=== PATIENT | female | born 1940 | race Caucasian/White ===

== ENCOUNTER → 2017-07-29 12:24 | Outpatient (CLI) | payer MEDICARE, OTHER, SELFPAY ==
--- NOTE | 2017-07-29 | DI.MG.S_ITS ---
BILATERAL DIGITAL SCREENING MAMMOGRAM 3D/2D WITH CAD: 07/29/2017 CLINICAL: Routine screening. Family history of breast cancer. Comparison is made to exams dated: 07/19/2016 mammogram, 06/20/2015 mammogram, and 05/28/2014 mammogram - [facility]. The tissue of both breasts is predominantly fatty. Current study was also evaluated with a Computer Aided Detection (CAD) system. There is a 0.7 cm oval equal density focal asymmetry with a macrolobulated margin in the left breast at 1 o'clock anterior depth. This is increased in size compared to prior studies. No other significant masses, calcifications, or other findings are seen in either breast. IMPRESSION: INCOMPLETE: NEEDS ADDITIONAL IMAGING EVALUATION The 0.7 cm oval equal density focal asymmetry in the left breast is indeterminate. Mediolateral and spot compression views as well as additional views with possible ultrasound are recommended. This exam was interpreted at Station ID: [id number]. NOTE: For mammograms, a report in lay terms will be sent to the patient. Approximately 15% of breast malignancies will not be visualized mammographically. In the management of a palpable breast mass, a negative mammogram must not discourage biopsy of a clinically suspicious lesion. Electronically Signed By: Dequan Leonardo M.D. ddlori/:07/29/2017 15:17:16 letter sent: Additional Imaging Needed ACR BI-RADS Category 0: Incomplete [id number]
== END ==
PROVIDERS: Family Provider Internal Medicine; PCP Internal Medicine; Visit Provider Internal Medicine
DX: Z12.31 Encounter for screening mammogram for malignant neoplasm of breast (principal); Z80.3 Family history of malignant neoplasm of breast; R92.8 Other abnormal and inconclusive findings on diagnostic imaging of breast
CPT/HCPCS: 77063; 77067

== ENCOUNTER → 2017-08-09 10:22 | Outpatient (CLI) | payer MEDICARE, OTHER, SELFPAY ==
--- NOTE | 2017-08-09 | DI.MG.S_ITS ---
UNILATERAL LEFT DIGITAL DIAGNOSTIC MAMMOGRAM 3D/2D WITH ADDITIONAL VIEWS: 08/09/2017 CLINICAL: Additional evaluation requested from prior study. Comparison is made to exams dated: 07/29/2017 mammogram, 07/19/2016 mammogram, and 06/20/2015 mammogram - [facility]. The tissue of the left breast is predominantly fatty. There is an 8 mm oval equal density mass with a circumscribed margin in the left breast at 2 o'clock in the retroareolar region. No other significant masses or calcifications are seen in the breast. IMPRESSION: INCOMPLETE: NEEDS ADDITIONAL IMAGING EVALUATION The 8 mm oval equal density mass in the left breast is indeterminate. An ultrasound is recommended. This exam was interpreted at Station ID: [id number]. NOTE: For mammograms, a report in lay terms will be sent to the patient. Approximately 15% of breast malignancies will not be visualized mammographically. In the management of a palpable breast mass, a negative mammogram must not discourage biopsy of a clinically suspicious lesion. Electronically Signed By: Chava marques/deirdre:08/09/2017 12:34:50 ACR BI-RADS Category 0: Incomplete [id number]
--- NOTE | 2017-08-09 10:23 | DI.US.S_ITS ---
PROCEDURE: US BREAST LT LIMITED COMPARISON: [facility], US, CAROTID ARTERY DOPPLER BILAT, 01/20/2013, 11:08. INDICATIONS: Additional View Mammogram FINDINGS: IMPRESSION: Dictated by: Chava Vang M.D. on 08/09/2017 at 12:37 Approved by: Chava Vang M.D. on 08/09/2017 at 12:38
== END ==
PROVIDERS: Family Provider Internal Medicine; PCP Internal Medicine; Visit Provider Internal Medicine
DX: R92.8 Other abnormal and inconclusive findings on diagnostic imaging of breast (principal); N63.21 Unspecified lump in the left breast, upper outer quadrant
CPT/HCPCS: 76642; 77065; G0279

== ENCOUNTER → 2017-08-22 13:30 | Outpatient (CLI) | payer MEDICARE, OTHER, SELFPAY ==
--- NOTE | 2017-08-22 | PATH_ITS ---
[facility] Accession Number: [id number] . 01 Material submitted: . LEFT BREAST . 01 Clinical history: . MASS 2 O'CLOCK RETROAREOLAR . 02 Diagnosis: Retroareolar Mass at 2 o'clock Anterior Depth, Left Breast, Needle Core Biopsy: Benign fibroepithelial breast tissue with dense stroma in a background of abundant fibroadipose tissue. Negative for atypia or malignancy. Additional levels through the block are non-contributory. MRV/08/26/2017 . 02 Comment: There is no evidence of increased stromal cellularity, increased stromal mitoses, or stromal condensation around ductal epithelium. . 02 Electronically signed: . Isi Azevedo MD, Pathologist NPI- [id number] . 01 Gross description: . Received one formalin-filled container, labeled with the patient's name, designated left breast mass 2 o'clock retroareolar. The specimen is received with a plastic filter in the container, sample loose in container, are multiple yellow-rodríguez portions of soft tissue which aggregate to 1.5 x 0.5 x 0.3 cm. The specimen is filtered and entirely submitted in one cassette. Collection date: 08/22/2017. Collection time per container: 1500. Total fixation time: 12 hours, up to 24. ([id number]) /FRR . 02 Pathologist provided ICD-10: D24.2 . 02 CPT . 919661 Performed at: 01 [facility] [address] [id number] MD Dequan Kinsey MD Phone: [phone] Performed at: 02 [facility] [id number] [place] [id number] MD Bryon Starr MD Phone: [phone]
--- NOTE | 2017-08-22 13:33 | DI.US.S_ITS ---
ULTRASOUND GUIDED BIOPSY LEFT BREAST USING VACUUM DEVICE WITH MARKING DEVICE INSERTED: 08/22/2017 CLINICAL: Left breast mass. PATIENT CONSENT: Risks (minor bleeding, infection, vasovagal reaction and repeat procedure), benefits and alternatives were explained to the patient and written informed consent was obtained. Correlation is made to exams dated: 08/09/2017 ultrasound, 08/09/2017 mammogram, and 07/29/2017 mammogram - [facility]. An ultrasound guided biopsy using real-time ultrasound was performed for the mass located in the left breast at 2 o'clock in the retroareolar region. The skin was prepped in the usual manner. Local anesthetic was administered to the access site. A small incision was made in the breast. A 13 gauge biopsy needle was placed adjacent to the abnormality under ultrasound guidance. Once the needle was documented to be in the correct location, multiple specimens were obtained using the Mammotome biopsy system. A clip was inserted into the biopsy cavity. Post procedure imaging demonstrates the clip at the targeted area. The specimens were sent to the laboratory for pathological analysis. IMPRESSION: ULTRASOUND GUIDED BIOPSY BENIGN Ultrasound guided biopsy of the mass in the left breast at 2 o'clock in the retroareolar region was successful with no apparent post procedure complications. Pathology indicates benign breast tissue . A follow-up mammogram and an ultrasound in 6 months are recommended to demonstrate stability. This exam was interpreted at Station ID: [id number]. Chava marques,ddp/:08/28/2017 17:09:27
--- NOTE | 2017-08-22 13:33 | DI.MG.S_ITS ---
UNILATERAL LEFT DIGITAL DIAGNOSTIC MAMMOGRAM POST-NEEDLE BIOPSY: 08/22/2017 CLINICAL: Left breast mass. Post clip placement. Comparison is made to exams dated: 08/09/2017 mammogram, 07/29/2017 mammogram, and 07/19/2016 mammogram - [facility]. The tissue of the left breast is predominantly fatty. There is a marker clip in the appropriate position in the left breast at 2 o'clock anterior depth. This marker clip placement is at biopsy site. IMPRESSION: POST PROCEDURE MAMMOGRAM FOR MARKER PLACEMENT There was a successful marker clip placement in the left breast anterior depth. This exam was interpreted at Station ID: [id number]. NOTE: For mammograms, a report in lay terms will be sent to the patient. Approximately 15% of breast malignancies will not be visualized mammographically. In the management of a palpable breast mass, a negative mammogram must not discourage biopsy of a clinically suspicious lesion. Electronically Signed By: Chava marques/deirdre:08/22/2017 17:12:05 ACR BI-RADS Category Post-procedure mammogram for marker placement
== END ==
PROVIDERS: Family Provider Internal Medicine; PCP Internal Medicine; Visit Provider Internal Medicine
DX: N63.20 Unspecified lump in the left breast, unspecified quadrant (principal); R92.8 Other abnormal and inconclusive findings on diagnostic imaging of breast
CPT/HCPCS: 19083; 77065

== ENCOUNTER 2017-08-24 16:33 | Observation (INO) | payer MEDICARE, OTHER, SELFPAY ==
[2017-08-24] VITALS (9 sets, daily range): BP systolic 104–137; BP diastolic 51–84; PULSE 72–120; RESP 17–28; TEMP 35.9–36.5; O2SAT 88–99; BMI 30.6
--- NOTE | 2017-08-24 17:09 | ED.CHESTPAIN ---
HPI - Chest Pain General Chief Complaint: Chest Pain Stated Complaint: Chest Pain & SOB Time Seen by Provider: 08/24/17 16:45 Source: patient Mode of arrival: ambulatory Limitations: no limitations History of Present Illness HPI narrative: Patient is a 77-year-old female who presents with chest pain. She says that she has been having chest pain mostly with deep breathing for the last 2 weeks. However she was in her house today moving from her kitchen when she got sudden onset shortness of breath which doubled her over making her call 911. She is no longer having shortness of breath. She has no heart palpitations. MD complaint: chest pain Related Data Home Medications Medication Instructions Recorded Confirmed [FEVERFEW] 380 mg PO DAILY #0 06/17/17 08/24/17 coenzyme Q10 [Co Q-10] 100 mg PO QDAY #0 06/17/17 08/24/17 polyethylene glycol 3350 [Miralax] 17 gm PO QDAYP #0 06/17/17 08/24/17 vitamin B complex [B 1 tab PO QDAY #0 06/17/17 08/24/17 Complex-Vitamin B12] ascorbic acid (vitamin C) 1,000 mg PO QDAY #0 06/25/17 08/24/17 doxylamine succinate 25 mg PO HS PRN #0 06/25/17 08/24/17 melatonin 3 mg PO HS #0 06/25/17 08/24/17 acetaminophen 500 mg tablet 1,000 mg PO TID PRN 07/30/17 08/24/17 diclofenac 1 % topical gel 2 gram TOP QID PRN 07/30/17 08/24/17 methotrexate sodium 2.5 mg tablet 5 mg PO DIRECTED 07/30/17 08/24/17 sumatriptan 100 mg tablet 100 mg PO ONCE PRN 07/30/17 08/24/17 acetaminophen-codeine 1 tab PO QPM 08/24/17 08/24/17 [Tylenol-Codeine #3] lorazepam 1 mg PO HSP PRN 08/24/17 08/24/17 omeprazole 40 mg PO DAILY 08/25/17 08/25/17 Previous Rx's Medication Instructions Recorded prednisone 30 mg PO AMCC #60 tab 06/19/17 nortriptyline [Pamelor] 10 mg PO HS #90 cap 06/25/17 propranolol 120 mg PO QDAY #90 cap 06/25/17 simvastatin 40 mg PO HS #90 tab 06/25/17 spironolactone 50 mg PO QAM #90 tab 06/25/17 Allergies Allergy/AdvReac Type Severity Reaction Status Date / Time verapamil Allergy Mild UNKNOWN Verified 07/30/17 15:49 Review of Systems Review of Systems All systems reviewed & are unremarkable except as noted in HPI and below Constitutional Denies chills, Denies fever(s), Denies lethargy and Denies weakness Cardiovascular Reports as per HPI Respiratory Reports as per HPI Neurologic Denies weakness PFSH Medical History PMR (polymyalgia rheumatica) (Chronic) Hypertension (Chronic 05/15/11) Hyperlipidemia (Chronic) Gastroesophageal reflux disease (Chronic 06/14/14) 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) Herpes simplex virus (HSV) infection (Chronic) History of migraine headaches (Chronic) Surgical History History of esophagogastroduodenoscopy (EGD) (06/18/12) Status post bunionectomy Status post colonoscopy (01/07/07) Status post dilation and curettage Family History Brother Age: 81 Hyperlipidemia Father Heart disease Social History household members: spouse Smoking Status: Former smoker alcohol intake: current Exam Initial Vital Signs Initial Vital Signs: Vital Signs Temperature 96.7 F L 08/24/17 16:52 Pulse Rate 72 08/24/17 16:52 Respiratory Rate 17 08/24/17 16:52 Blood Pressure 107/64 08/24/17 16:52 Pulse Oximetry 99 08/24/17 16:52 GENERAL: Well-appearing, well-nourished and in no acute distress. HEENT: Head atraumatic,EOMI, pupils reactive CARDIOVASCULAR: Regular rate and rhythm without murmurs, rubs or gallops. Pain not reproducible with palpation RESPIRATORY: Breath sounds equal bilaterally, no wheezes rales or rhonchi. ABDOMEN: Soft, nontender. Normoactive bowel sounds all 4 quadrants. No guarding or rebound. EXTREMITIES: Normal range of motion, no clubbing or edema. Neurovascularly intact NEUROLOGICAL: Alert and oriented x4.Normal gait and speech. Cranial nerves II through XII grossly intact. SKIN: Warm, dry, no laceration, no petechiae, no rashes or lesions. Course Orders Ordered: ED Orders 08/25/17 05:21 Troponin I Routine Diclofenac Sodium (Voltaren 1% Gel) 1 applic TOP QID [facility] Enoxaparin Sodium (Lovenox) 40 mg SUBCUT DAILY [facility] Melatonin (Melatonin) 3 mg PO BEDTIME [facility] Last Admin: 08/25/17 00:33 Dose: Non-Formulary Medication (Acetaminophen [Tylenol Extra Strength]) 500 mg PO Q4H PRN PRN Reason: Pain, Moderate Nortriptyline HCl (Pamelor) 10 mg PO BEDTIME [facility] Last Admin: 08/25/17 00:29 Dose: 10 mg Pantoprazole Sodium (Protonix) 20 mg PO 0600 [facility] Last Admin: 08/25/17 06:32 Dose: 20 mg [facility]) [facility] Propranolol HCl (Inderal La) 120 mg PO DAILY [facility] Spironolactone (Aldactone) 50 mg PO DAILY [facility] Discontinued Medications Acetaminophen (Tylenol) 500 mg PO Q4HR PRN PRN Reason: As Needed for Fever/Mild Pain Albuterol/Ipratropium (Duoneb) 3 ml INH NOW ONE Stop: 08/24/17 17:10 Last Admin: 08/24/17 17:46 Dose: 3 ml Furosemide (Lasix) 40 mg IV NOW ONE Stop: 08/24/17 19:57 Last Admin: 08/24/17 20:00 Dose: 40 mg Sodium Chloride (Normal Saline 0.9%) 1,000 mls @ 1,000 mls/hr IV BOLUS ONE Stop: 08/24/17 18:36 Last Infusion: 08/24/17 19:16 Dose: 1,000 mls/hr Admin: 08/24/17 17:46 Dose: 1,000 mls/hr Pantoprazole Sodium (Protonix) 40 mg IV NOW ONE Stop: 08/24/17 17:12 Last Admin: 08/24/17 17:46 Dose: 40 mg Vital Signs - 8 hr 08/24/17 23:38 08/25/17 00:00 08/25/17 03:00 Temperature 97.7 F 99.3 F Pulse Rate 104 H 100 H Respiratory Rate 18 20 Blood Pressure 106/74 139/79 H Pulse Oximetry 93 98 100 08/25/17 06:36 08/25/17 06:51 Temperature Pulse Rate Respiratory Rate Blood Pressure Pulse Oximetry 86 L 89 L MDM - Chest Pain Lab Data Result diagrams: 08/24/17 16:15 08/24/17 16:15 Lab Results 08/24/17 08/24/17 08/24/17 Range/Units 16:15 16:15 16:15 WBC 5.9 (4.5-11.0) X10^3/uL RBC 3.67 L (4.0-5.2) X10^6/uL Hgb 11.7 L (12.0-16.0) g/dL Hct 34.6 L (36-46) % MCV 94.2 (80-100) fL MCH 31.9 (26-34) PG MCHC 33.8 (30-36) % RDW 19.3 H (11.6-14.8) % Plt Count 365 (150-400) X10^3/uL Neut % (Auto) 93.9 H (50-75) % Lymph % (Auto) 2.3 L (25-40) % Kenton % (Auto) 2.5 L (3-14) % Eos % (Auto) 1.1 L (2-4) % Baso % (Auto) 0.2 (0-2) % Neut # (Auto) 5600 (6842-2524) /uL PT 12.7 (10.1-12.7) SECONDS INR 1.2 (0.9-1.3) APTT 30 (26.4-36.2) SECONDS Sodium 134 L (137-145) mmol/L Potassium 4.8 (3.4-5.1) mmol/L Chloride 96 L (98-107) mmol/L Carbon Dioxide 25 (22-32) mmol/L BUN 29 H (7-17) mg/dL Creatinine 1.20 H (0.52-1.04) mg/dL Estimated GFR 43.7 L (>60) mL/min BUN/Creatinine Ratio 24.2 H (6-22) Glucose 126 H (80-110) mg/dL Lactate (0.7-2.1) mmol/L Calcium 9.4 (8.4-10.2) mg/dL Total Bilirubin 0.4 (0.2-1.3) mg/dL AST 33 (14-36) IU/L ALT 32 (9-52) IU/L Alkaline Phosphatase 65 (38-126) U/L Total Creatine Kinase < 20 L (30-135) U/L Troponin I < 0.012 (0.01-0.034) ng/mL B-Natriuretic Peptide 103.0 H (<100) Total Protein 7.2 (6.3-8.2) g/dL Albumin 3.8 (3.5-5.0) g/dL Globulin 3.4 (1.7-4.1) g/dL Albumin/Globulin Ratio 1.1 (1.0-2.8) Procalcitonin (<0.5) ng/mL 08/24/17 08/24/17 08/24/17 Range/Units 16:15 16:15 19:40 WBC (4.5-11.0) X10^3/uL RBC (4.0-5.2) X10^6/uL Hgb (12.0-16.0) g/dL Hct (36-46) % MCV (80-100) fL MCH (26-34) PG MCHC (30-36) % RDW (11.6-14.8) % Plt Count (150-400) X10^3/uL Neut % (Auto) (50-75) % Lymph % (Auto) (25-40) % Kenton % (Auto) (3-14) % Eos % (Auto) (2-4) % Baso % (Auto) (0-2) % Neut # (Auto) (1797-5034) /uL PT (10.1-12.7) SECONDS INR (0.9-1.3) APTT (26.4-36.2) SECONDS Sodium (137-145) mmol/L Potassium (3.4-5.1) mmol/L Chloride (98-107) mmol/L Carbon Dioxide (22-32) mmol/L BUN (7-17) mg/dL Creatinine (0.52-1.04) mg/dL Estimated GFR (>60) mL/min BUN/Creatinine Ratio (6-22) Glucose (80-110) mg/dL Lactate 1.9 (0.7-2.1) mmol/L Calcium (8.4-10.2) mg/dL Total Bilirubin (0.2-1.3) mg/dL AST (14-36) IU/L ALT (9-52) IU/L Alkaline Phosphatase (38-126) U/L Total Creatine Kinase (30-135) U/L Troponin I (0.01-0.034) ng/mL B-Natriuretic Peptide 89.2 (<100) Total Protein (6.3-8.2) g/dL Albumin (3.5-5.0) g/dL Globulin (1.7-4.1) g/dL Albumin/Globulin Ratio (1.0-2.8) Procalcitonin 0.20 (<0.5) ng/mL 08/24/17 08/25/17 Range/Units 21:53 05:21 WBC (4.5-11.0) X10^3/uL RBC (4.0-5.2) X10^6/uL Hgb (12.0-16.0) g/dL Hct (36-46) % MCV (80-100) fL MCH (26-34) PG MCHC (30-36) % RDW (11.6-14.8) % Plt Count (150-400) X10^3/uL Neut % (Auto) (50-75) % Lymph % (Auto) (25-40) % Kenton % (Auto) (3-14) % Eos % (Auto) (2-4) % Baso % (Auto) (0-2) % Neut # (Auto) (0791-6622) /uL PT (10.1-12.7) SECONDS INR (0.9-1.3) APTT (26.4-36.2) SECONDS Sodium (137-145) mmol/L Potassium (3.4-5.1) mmol/L Chloride (98-107) mmol/L Carbon Dioxide (22-32) mmol/L BUN (7-17) mg/dL Creatinine (0.52-1.04) mg/dL Estimated GFR (>60) mL/min BUN/Creatinine Ratio (6-22) Glucose (80-110) mg/dL Lactate (0.7-2.1) mmol/L Calcium (8.4-10.2) mg/dL Total Bilirubin (0.2-1.3) mg/dL AST (14-36) IU/L ALT (9-52) IU/L Alkaline Phosphatase (38-126) U/L Total Creatine Kinase (30-135) U/L Troponin I < 0.012 < 0.012 (0.01-0.034) ng/mL B-Natriuretic Peptide (<100) Total Protein (6.3-8.2) g/dL Albumin (3.5-5.0) g/dL Globulin (1.7-4.1) g/dL Albumin/Globulin Ratio (1.0-2.8) Procalcitonin (<0.5) ng/mL ECG Data Interpretation: Normal sinus rhythm T-wave inversion noted in lead [address] changes normal intervals similar to prior Discharge Plan Departure Patient Disposition: Admitted as Observation Clinical Impression: Chest pain, Hypoxia Discharge Date/Time: 08/24/17 22:48 Interventions: ED Discharge Assessment Last Done: 08/24/17 22:48 Admit Date/Time: 08/24/17 21:25 Admit Provider: Florentino Nevarez ED Cosign/Signout Sign Out Provider Sign Out Attestation: signed out to Dr. Silva awaiting ct pe, likely admission. hypotension and hypoxia.
--- NOTE | 2017-08-24 17:10 | DI.RAD.S_ITS ---
PROCEDURE: XR CHEST 2V INDICATIONS: short of breath and chest pain TECHNIQUE: 2 views of the chest were acquired. COMPARISON: , , CHEST 2 VIEW, 06/17/2017, 12:29. FINDINGS: Surgical changes and devices: None. Lungs and pleura: No pleural effusions or pneumothorax. Perihilar opacities are noted compatible with pulmonary edema. Mediastinum: Mediastinal contours are normal. Heart size is normal. Bones and chest wall: No suspicious bony abnormalities. Soft tissues appear unremarkable. IMPRESSION: Pulmonary edema. Dictated by: Sirisha Gunter MD, PhD on 08/24/2017 at 17:49 Approved by: Sirisha Gunter MD, PhD on 08/24/2017 at 17:51
--- NOTE | 2017-08-24 17:12 | ED_ITS ---
HPI - Chest Pain General Chief Complaint: Chest Pain Stated Complaint: Chest Pain & SOB Time Seen by Provider: 08/24/17 16:45 Source: patient Mode of arrival: ambulatory Limitations: no limitations History of Present Illness HPI narrative: Patient is a 77-year-old female who presents with chest pain. She says that she has been having chest pain mostly with deep breathing for the last 2 weeks. However she was in her house today moving from her kitchen when she got sudden onset shortness of breath which doubled her over making her call 911. She is no longer having shortness of breath. She has no heart palpitations. MD complaint: chest pain Related Data Home Medications Medication Instructions Recorded Confirmed [FEVERFEW] 380 mg PO DAILY #0 06/17/17 08/24/17 coenzyme Q10 [Co Q-10] 100 mg PO QDAY #0 06/17/17 08/24/17 polyethylene glycol 3350 [Miralax] 17 gm PO QDAYP #0 06/17/17 08/24/17 vitamin B complex [B 1 tab PO QDAY #0 06/17/17 08/24/17 Complex-Vitamin B12] ascorbic acid (vitamin C) 1,000 mg PO QDAY #0 06/25/17 08/24/17 doxylamine succinate 25 mg PO HS PRN #0 06/25/17 08/24/17 melatonin 3 mg PO HS #0 06/25/17 08/24/17 acetaminophen 500 mg tablet 1,000 mg PO TID PRN 07/30/17 08/24/17 diclofenac 1 % topical gel 2 gram TOP QID PRN 07/30/17 08/24/17 methotrexate sodium 2.5 mg tablet 5 mg PO DIRECTED 07/30/17 08/24/17 sumatriptan 100 mg tablet 100 mg PO ONCE PRN 07/30/17 08/24/17 acetaminophen-codeine 1 tab PO QPM 08/24/17 08/24/17 [Tylenol-Codeine #3] lorazepam 1 mg PO HSP PRN 08/24/17 08/24/17 omeprazole 40 mg PO DAILY 08/25/17 08/25/17 Previous Rx's Medication Instructions Recorded prednisone 30 mg PO AMCC #60 tab 06/19/17 nortriptyline [Pamelor] 10 mg PO HS #90 cap 06/25/17 propranolol 120 mg PO QDAY #90 cap 06/25/17 simvastatin 40 mg PO HS #90 tab 06/25/17 spironolactone 50 mg PO QAM #90 tab 06/25/17 Allergies Allergy/AdvReac Type Severity Reaction Status Date / Time verapamil Allergy Mild UNKNOWN Verified 07/30/17 15:49 Review of Systems Review of Systems All systems reviewed & are unremarkable except as noted in HPI and below Constitutional Denies chills, Denies fever(s), Denies lethargy and Denies weakness Cardiovascular Reports as per HPI Respiratory Reports as per HPI Neurologic Denies weakness PFSH Medical History PMR (polymyalgia rheumatica) (Chronic) Hypertension (Chronic 05/15/11) Hyperlipidemia (Chronic) Gastroesophageal reflux disease (Chronic 06/14/14) 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) Herpes simplex virus (HSV) infection (Chronic) History of migraine headaches (Chronic) Surgical History History of esophagogastroduodenoscopy (EGD) (06/18/12) Status post bunionectomy Status post colonoscopy (01/07/07) Status post dilation and curettage Family History Brother Age: 81 Hyperlipidemia Father Heart disease Social History household members: spouse Smoking Status: Former smoker alcohol intake: current Exam Initial Vital Signs Initial Vital Signs: Vital Signs Temperature 96.7 F L 08/24/17 16:52 Pulse Rate 72 08/24/17 16:52 Respiratory Rate 17 08/24/17 16:52 Blood Pressure 107/64 08/24/17 16:52 Pulse Oximetry 99 08/24/17 16:52 GENERAL: Well-appearing, well-nourished and in no acute distress. HEENT: Head atraumatic,EOMI, pupils reactive CARDIOVASCULAR: Regular rate and rhythm without murmurs, rubs or gallops. Pain not reproducible with palpation RESPIRATORY: Breath sounds equal bilaterally, no wheezes rales or rhonchi. ABDOMEN: Soft, nontender. Normoactive bowel sounds all 4 quadrants. No guarding or rebound. EXTREMITIES: Normal range of motion, no clubbing or edema. Neurovascularly intact NEUROLOGICAL: Alert and oriented x4.Normal gait and speech. Cranial nerves II through XII grossly intact. SKIN: Warm, dry, no laceration, no petechiae, no rashes or lesions. Course Orders Ordered: ED Orders 08/25/17 05:21 Troponin I Routine Diclofenac Sodium (Voltaren 1% Gel) 1 applic TOP QID [facility] Enoxaparin Sodium (Lovenox) 40 mg SUBCUT DAILY [facility] Melatonin (Melatonin) 3 mg PO BEDTIME [facility] Last Admin: 08/25/17 00:33 Dose: Non-Formulary Medication (Acetaminophen [Tylenol Extra Strength]) 500 mg PO Q4H PRN PRN Reason: Pain, Moderate Nortriptyline HCl (Pamelor) 10 mg PO BEDTIME [facility] Last Admin: 08/25/17 00:29 Dose: 10 mg Pantoprazole Sodium (Protonix) 20 mg PO 0600 [facility] Last Admin: 08/25/17 06:32 Dose: 20 mg Pred[facility]one ([facility]) [facility] Propranolol HCl (Inderal La) 120 mg PO DAILY [facility] Spironolactone (Aldactone) 50 mg PO DAILY [facility] Discontinued Medications Acetaminophen (Tylenol) 500 mg PO Q4HR PRN PRN Reason: As Needed for Fever/Mild Pain Albuterol/Ipratropium (Duoneb) 3 ml INH NOW ONE Stop: 08/24/17 17:10 Last Admin: 08/24/17 17:46 Dose: 3 ml Furosemide (Lasix) 40 mg IV NOW ONE Stop: 08/24/17 19:57 Last Admin: 08/24/17 20:00 Dose: 40 mg Sodium Chloride (Normal Saline 0.9%) 1,000 mls @ 1,000 mls/hr IV BOLUS ONE Stop: 08/24/17 18:36 Last Infusion: 08/24/17 19:16 Dose: 1,000 mls/hr Admin: 08/24/17 17:46 Dose: 1,000 mls/hr Pantoprazole Sodium (Protonix) 40 mg IV NOW ONE Stop: 08/24/17 17:12 Last Admin: 08/24/17 17:46 Dose: 40 mg Vital Signs - 8 hr 08/24/17 23:38 08/25/17 00:00 08/25/17 03:00 Temperature 97.7 F 99.3 F Pulse Rate 104 H 100 H Respiratory Rate 18 20 Blood Pressure 106/74 139/79 H Pulse Oximetry 93 98 100 08/25/17 06:36 08/25/17 06:51 Temperature Pulse Rate Respiratory Rate Blood Pressure Pulse Oximetry 86 L 89 L MDM - Chest Pain Lab Data Result diagrams: 08/24/17 16:15 08/24/17 16:15 Lab Results 08/24/17 08/24/17 08/24/17 Range/Units 16:15 16:15 16:15 WBC 5.9 (4.5-11.0) X10^3/uL RBC 3.67 L (4.0-5.2) X10^6/uL Hgb 11.7 L (12.0-16.0) g/dL Hct 34.6 L (36-46) % MCV 94.2 (80-100) fL MCH 31.9 (26-34) PG MCHC 33.8 (30-36) % RDW 19.3 H (11.6-14.8) % Plt Count 365 (150-400) X10^3/uL Neut % (Auto) 93.9 H (50-75) % Lymph % (Auto) 2.3 L (25-40) % [place] % (Auto) 2.5 L (3-14) % Eos % (Auto) 1.1 L (2-4) % Baso % (Auto) 0.2 (0-2) % Neut # (Auto) 5600 (4553-1782) /uL PT 12.7 (10.1-12.7) SECONDS INR 1.2 (0.9-1.3) APTT 30 (26.4-36.2) SECONDS Sodium 134 L (137-145) mmol/L Potassium 4.8 (3.4-5.1) mmol/L Chloride 96 L (98-107) mmol/L Carbon Dioxide 25 (22-32) mmol/L BUN 29 H (7-17) mg/dL Creatinine 1.20 H (0.52-1.04) mg/dL Estimated GFR 43.7 L (>60) mL/min BUN/Creatinine Ratio 24.2 H (6-22) Glucose 126 H (80-110) mg/dL Lactate (0.7-2.1) mmol/L Calcium 9.4 (8.4-10.2) mg/dL Total Bilirubin 0.4 (0.2-1.3) mg/dL AST 33 (14-36) IU/L ALT 32 (9-52) IU/L Alkaline Phosphatase 65 (38-126) U/L Total Creatine Kinase < 20 L (30-135) U/L Troponin I < 0.012 (0.01-0.034) ng/mL B-Natriuretic Peptide 103.0 H (<100) Total Protein 7.2 (6.3-8.2) g/dL Albumin 3.8 (3.5-5.0) g/dL Globulin 3.4 (1.7-4.1) g/dL Albumin/Globulin Ratio 1.1 (1.0-2.8) Procalcitonin (<0.5) ng/mL 08/24/17 08/24/17 08/24/17 Range/Units 16:15 16:15 19:40 WBC (4.5-11.0) X10^3/uL RBC (4.0-5.2) X10^6/uL Hgb (12.0-16.0) g/dL Hct (36-46) % MCV (80-100) fL MCH (26-34) PG MCHC (30-36) % RDW (11.6-14.8) % Plt Count (150-400) X10^3/uL Neut % (Auto) (50-75) % Lymph % (Auto) (25-40) % [place] % (Auto) (3-14) % Eos % (Auto) (2-4) % Baso % (Auto) (0-2) % Neut # (Auto) (6237-0174) /uL PT (10.1-12.7) SECONDS INR (0.9-1.3) APTT (26.4-36.2) SECONDS Sodium (137-145) mmol/L Potassium (3.4-5.1) mmol/L Chloride (98-107) mmol/L Carbon Dioxide (22-32) mmol/L BUN (7-17) mg/dL Creatinine (0.52-1.04) mg/dL Estimated GFR (>60) mL/min BUN/Creatinine Ratio (6-22) Glucose (80-110) mg/dL Lactate 1.9 (0.7-2.1) mmol/L Calcium (8.4-10.2) mg/dL Total Bilirubin (0.2-1.3) mg/dL AST (14-36) IU/L ALT (9-52) IU/L Alkaline Phosphatase (38-126) U/L Total Creatine Kinase (30-135) U/L Troponin I (0.01-0.034) ng/mL B-Natriuretic Peptide 89.2 (<100) Total Protein (6.3-8.2) g/dL Albumin (3.5-5.0) g/dL Globulin (1.7-4.1) g/dL Albumin/Globulin Ratio (1.0-2.8) Procalcitonin 0.20 (<0.5) ng/mL 08/24/17 08/25/17 Range/Units 21:53 05:21 WBC (4.5-11.0) X10^3/uL RBC (4.0-5.2) X10^6/uL Hgb (12.0-16.0) g/dL Hct (36-46) % MCV (80-100) fL MCH (26-34) PG MCHC (30-36) % RDW (11.6-14.8) % Plt Count (150-400) X10^3/uL Neut % (Auto) (50-75) % Lymph % (Auto) (25-40) % [place] % (Auto) (3-14) % Eos % (Auto) (2-4) % Baso % (Auto) (0-2) % Neut # (Auto) (9489-4434) /uL PT (10.1-12.7) SECONDS INR (0.9-1.3) APTT (26.4-36.2) SECONDS Sodium (137-145) mmol/L Potassium (3.4-5.1) mmol/L Chloride (98-107) mmol/L Carbon Dioxide (22-32) mmol/L BUN (7-17) mg/dL Creatinine (0.52-1.04) mg/dL Estimated GFR (>60) mL/min BUN/Creatinine Ratio (6-22) Glucose (80-110) mg/dL Lactate (0.7-2.1) mmol/L Calcium (8.4-10.2) mg/dL Total Bilirubin (0.2-1.3) mg/dL AST (14-36) IU/L ALT (9-52) IU/L Alkaline Phosphatase (38-126) U/L Total Creatine Kinase (30-135) U/L Troponin I < 0.012 < 0.012 (0.01-0.034) ng/mL B-Natriuretic Peptide (<100) Total Protein (6.3-8.2) g/dL Albumin (3.5-5.0) g/dL Globulin (1.7-4.1) g/dL Albumin/Globulin Ratio (1.0-2.8) Procalcitonin (<0.5) ng/mL ECG Data Interpretation: Normal sinus rhythm T-wave inversion noted in lead [address] changes normal intervals similar to prior Discharge Plan Departure Patient Disposition: Admitted as Observation Clinical Impression: Chest pain, Hypoxia Discharge Date/Time: 08/24/17 22:48 Interventions: ED Discharge Assessment Last Done: 08/24/17 22:48 Admit Date/Time: 08/24/17 21:25 Admit Provider: Florentino Nevarez ED Cosign/Signout Sign Out Provider Sign Out Attestation: signed out to Dr. Silva awaiting ct pe, likely admission. hypotension and hypoxia.
[2017-08-24 17:21] LABS: Add Manual Diff / Slide Review NO; Basophils Percent Auto 0.2 % (0-2); Eosinophils Percent Auto 1.1 % (2-4); Hematocrit 34.6 % (36-46); Hemoglobin 11.7 g/dL (12.0-16.0); INR 1.2 (0.9-1.3); Lymphocytes Percent Auto 2.3 % (25-40); Mean Corpuscular HGB Conc 33.8 % (30-36); Mean Corpuscular Hemoglobin 31.9 PG (26-34); Mean Corpuscular Volume 94.2 fL (80-100); Monocytes Percent Auto 2.5 % (3-14); Neutrophils Absolute Auto 5600 /uL (3000-5900); Neutrophils Percent Auto 93.9 % (50-75); Platelet Count 365 X10^3/uL (150-400); Prothrombin Time 12.7 SECONDS (10.1-12.7); Red Blood Cell Count 3.67 X10^6/uL (4.0-5.2); Red Cell Distribution Width 19.3 % (11.6-14.8); White Blood Cell Count 5.9 X10^3/uL (4.5-11.0)
[2017-08-24 17:23] LABS: PTT Partial Thromboplastin Tim 30 SECONDS (26.4-36.2)
[2017-08-24 17:26] LABS: Alanine Aminotransferase 32 IU/L (9-52); Albumin 3.8 g/dL (3.5-5.0); Albumin Globulin Ratio 1.1 (1.0-2.8); Alkaline Phosphatase 65 U/L (38-126); Aspartate Aminotransferase 33 IU/L (14-36); BUN Creatinine Ratio 24.2 (6-22); Bilirubin Total 0.4 mg/dL (0.2-1.3); Blood Urea Nitrogen 29 mg/dL (7-17); Calcium 9.4 mg/dL (8.4-10.2); Carbon Dioxide 25 mmol/L (22-32); Chloride 96 mmol/L (98-107); Creatine Kinase < 20 U/L (30-135); Estimated Glomerular Filt Rate 43.7 mL/min (>60); Globulin 3.4 g/dL (1.7-4.1); Glucose 126 mg/dL (80-110); HEMOLYSIS < 15 (0-50); Potassium 4.8 mmol/L (3.4-5.1); Sodium 134 mmol/L (137-145); Total Protein 7.2 g/dL (6.3-8.2)
[2017-08-24 17:37] LABS: Troponin I < 0.012 ng/mL (0.01-0.034)
[2017-08-24] MEDS: SODIUM CHLORIDE 0.9% 1,000 ML 1000 ML IV (17:46)
[2017-08-24] MEDS: PANTOPRAZOLE 40 MG VIAL IV (17:46)
[2017-08-24] MEDS: ALBUTEROL/IPRATROPIUM 3 ML AMPUL INH (17:46)
--- NOTE | 2017-08-24 17:50 | DI.CT.S_ITS ---
PROCEDURE: CT ANGIO CHEST PE PROTOCOL INDICATIONS: hypotensive, hypoxic chest pain TECHNIQUE: After the administration of intravenous contrast, 2 mm thick sections acquired from the pulmonary apices to the posterior costophrenic angles. 3-dimensional maximum intensity projection (MIP) coronal and sagittal reformats were then acquired through the thorax. For radiation dose reduction, the following was used: automated exposure control, adjustment of mA and/or kV according to patient size. COMPARISON: [facility], CT, PE STUDY (CTA CHEST), 06/17/2017, 15:03. FINDINGS: Image quality: Excellent. Pulmonary arteries: Pulmonary arteries are normal in size, and demonstrate no intraluminal filling defects to suggest central pulmonary embolism. Lungs and pleura: Bilateral perihilar opacities noted compatible with pulmonary edema versus atypical pneumonia.. No pleural effusions or pneumothorax. Central and peripheral airways are patent. Mediastinum: Heart size is normal, without pericardial effusion. No mediastinal or hilar adenopathy. Thoracic aorta is normal in caliber and enhancement. Esophagus is normal in caliber, without hiatal hernia. Bones and chest wall: No suspicious bony lesions. Ribs and thoracic spine appear intact throughout. Thyroid gland is within normal limits. No axillary or supraclavicular adenopathy. Abdomen: Visualized upper abdominal solid organs appear normal in the early arterial phase of enhancement. IMPRESSION: 1. No pulmonary embolus. 2. Bilateral perihilar airspace opacities compatible with pulmonary edema versus atypical pneumonia. Dictated by: Sirisha Gnuter MD, PhD on 08/24/2017 at 18:51 Approved by: Sirisha Gunter MD, PhD on 08/24/2017 at 18:56
--- NOTE | 2017-08-24 19:31 | PC.NURSE ---
Assumed care of pt in bed 12. Initial assessment completed. Pt reports mid chest pain with sob with light activities such as walking and leaning forward. Pt reports takes water pill which helps with lower leg edema but unable to recall the med name. pt was taken off the diuretic around then changed to lower/mild med/dose about a month ago. Noted mild crackles in lower lobes. Pt is not o2 dependent at home but has been provided during this ER visit. Pt assisted to bathroom with stand by assistance for ambulation trial. Pt desats to 93% in RA, after the ambulation, pt's lowest o2 sat at 76% then increased 88% in RA with RR in 28/min and reports SOB. a and p technician at bedside obtaining additional lab tests-BNP, cultures and procalcitonin.
[2017-08-24 19:51] LABS: B Type Natriuretic Peptide 89.2 (<100)
[2017-08-24] MEDS: FUROSEMIDE 40 MG/4 ML VIAL IV (20:00)
--- NOTE | 2017-08-24 20:06 | ED.CHESTPAIN ---
HPI - Chest Pain General Chief Complaint: Chest Pain Stated Complaint: Chest Pain & SOB Time Seen by Provider: 08/24/17 16:45 Source: patient Mode of arrival: ambulatory Limitations: no limitations History of Present Illness HPI narrative: Emergency Medicine Physician Handoff Note Verbal report from at 6:34:13 PM, 24/08/2017. Summary: 77 y/o female here with two weeks of intermittent chest pain, here following severe sharp stabbing pain. Vitals and completed studies were jointly reviewed, these are notable for: * Hypoxia and hypotension * WBC 5.9, HB 11.7, Na 134, K 4.8, troponin < 0.012 * CXR: pulmonary edema * EKG: SR 83 bpm, no LA segment depressions, QRS 76 ms, no ST segment elevations or depressions, no LBBB. Pending: CT PE Anticipated disposition: admission due to hypotension and hypoxemia. Evaluation: I independently reviewed the prior provider's chart, nursing and triage note(s), vitals - and when available - labs, EKGs, and imaging studies. CTA chest: no pulmonary embolus. Bilateral perihilar airspace opacity compatible pulmonary edema versus atypical pneumonia. Evaluation (repeat): 77-year-old female notes intermittent chest pain over last 2 weeks, worsened with sitting up her walking, relieved by lying flat resting, pain is mid sternum, poorly characterized, and nonradiating. Patient denies fevers and chills, patient variably endorses taking unknown water pill, medication reviews without evidence of a diuretic. Physical exam with faint crackles throughout the bilateral upper lung vital. BMP, procalcitonin, blood cultures ordered. DDx (remaining): CHF, pneumonia, costochondritis, pleurisy, unstable angina. Effectively excluded at this point the evaluation is dissection, PE, ACS, myocarditis, pericarditis, pleural effusion, pericardial effusion. Evaluation: imaging, exam, and vital signs are concerning for congestive heart failure. Patient had an ambulatory SaO2 of 76% on room air with good arterial plethysmography (patient does not use oxygen at home). Patient given lasix 40 mg and admitted for further care. Patient also had exacerbation of her chest pain will ambulating raising concern for unstable angina, this will require further evaluation on an inpatient basis. Follow-up of the patient's Procalcitonin, BNP, and blood cultures deferred to the admitting physician. Antibiotics were not given as is felt to be unlikely that the patient has pneumonia. Impression: CHF, chest pain (please reference below for remainder of encounter information) Critical Care Time Organ system(s): Cardiopulmonary Intervention: Assessment of the patient, interpretation of studies, communication related to patient care. Time: 30 minutes were spent directly related to patient care exclusive of separately billed procedures. Related Data Home Medications Medication Instructions Recorded Confirmed [FEVERFEW] PRN PRN #0 06/17/17 07/30/17 coenzyme Q10 [Co Q-10] 100 mg PO QDAY #0 06/17/17 07/30/17 polyethylene glycol 3350 [Miralax] 17 gm PO QDAYP PRN #0 06/17/17 07/30/17 vitamin B complex [B 1 tab PO QDAY #0 06/17/17 07/30/17 Complex-Vitamin B12] ascorbic acid (vitamin C) 1,000 mg PO QDAY #0 06/25/17 07/30/17 doxylamine succinate 25 mg PO HS PRN #0 06/25/17 07/30/17 melatonin 3 mg PO HS #0 06/25/17 07/30/17 acetaminophen 500 mg tablet 500 mg PO Q4-6H PRN 07/30/17 07/30/17 diclofenac 1 % topical gel 2 gram TOP QID 07/30/17 07/30/17 methotrexate sodium 2.5 mg tablet 5 mg PO QWEEK 07/30/17 07/30/17 sumatriptan 100 mg tablet 100 mg PO ONCE 07/30/17 07/30/17 Previous Rx's Medication Instructions Recorded ciprofloxacin HCl [Cipro] 500 mg PO BID #14 tab 06/19/17 ibuprofen 800 mg PO Q8HP PRN #1 tab 06/19/17 prednisone 30 mg PO AMCC #60 tab 06/19/17 Disabled Parking Permit ea #1 06/25/17 lorazepam 0.5 mg PO HSP PRN #30 tab 06/25/17 nortriptyline [Pamelor] 10 mg PO HS #90 cap 06/25/17 omeprazole 0 PO QDAY #90 cap 06/25/17 propranolol 120 mg PO QDAY #90 cap 06/25/17 simvastatin 40 mg PO HS #90 tab 06/25/17 spironolactone 50 mg PO QAM #90 tab 06/25/17 Allergies Allergy/AdvReac Type Severity Reaction Status Date / Time verapamil Allergy Mild UNKNOWN Verified 07/30/17 15:49 Review of Systems Constitutional Denies weakness Neurologic Denies weakness PFSH Medical History PMR (polymyalgia rheumatica) (Chronic) Hypertension (Chronic 05/15/11) Hyperlipidemia (Chronic) Gastroesophageal reflux disease (Chronic 06/14/14) 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) Herpes simplex virus (HSV) infection (Chronic) History of migraine headaches (Chronic) Surgical History History of esophagogastroduodenoscopy (EGD) (06/18/12) Status post bunionectomy Status post colonoscopy (01/07/07) Status post dilation and curettage Family History Brother Age: 81 Hyperlipidemia Father Heart disease Social History Smoking Status: Never smoker Exam Initial Vital Signs Initial Vital Signs: Vital Signs Temperature 96.7 F L 08/24/17 16:52 Pulse Rate 72 08/24/17 16:52 Respiratory Rate 17 08/24/17 16:52 Blood Pressure 107/64 08/24/17 16:52 Pulse Oximetry 99 08/24/17 16:52 Course Orders Ordered: ED Orders 08/24/17 16:15 B Type Natriuretic Peptide Stat B Type Natriuretic Peptide Stat Complete Blood Count AUTO DIFF Stat Comprehensive Metabolic Panel Stat Partial Thromboplastin Time Stat Procalcitonin Stat Prothrombin Time INR Stat Troponin with CK Cardiac Panel Stat 08/24/17 17:10 Consult to Respiratory Therapy Evaluate & Treat XR chest 2V Stat 08/24/17 17:50 CT angio chest PE protocol Stat 08/24/17 20:00 Blood Culture Stat Discontinued Medications Albuterol/Ipratropium (Duoneb) 3 ml INH NOW ONE Stop: 08/24/17 17:10 Last Admin: 08/24/17 17:46 Dose: 3 ml Furosemide (Lasix) 40 mg IV NOW ONE Stop: 08/24/17 19:57 Last Admin: 08/24/17 20:00 Dose: 40 mg Sodium Chloride (Normal Saline 0.9%) 1,000 mls @ 1,000 mls/hr IV BOLUS ONE Stop: 08/24/17 18:36 Last Infusion: 08/24/17 19:16 Dose: 1,000 mls/hr Admin: 08/24/17 17:46 Dose: 1,000 mls/hr Pantoprazole Sodium (Protonix) 40 mg IV NOW ONE Stop: 08/24/17 17:12 Last Admin: 08/24/17 17:46 Dose: 40 mg Vital Signs - 8 hr 08/24/17 16:52 08/24/17 17:51 08/24/17 19:13 Temperature 96.7 F L Pulse Rate 72 74 75 Respiratory Rate 17 18 21 Blood Pressure 107/64 Blood Pressure [Left Arm] 115/84 H Pulse Oximetry 99 92 97 08/24/17 19:39 Temperature Pulse Rate 120 H Respiratory Rate 28 H Blood Pressure Blood Pressure [Left Arm] Pulse Oximetry 88 L MDM - Chest Pain Lab Data Result diagrams: 08/24/17 16:15 08/24/17 16:15 Lab Results 08/24/17 08/24/17 08/24/17 Range/Units 16:15 16:15 16:15 WBC 5.9 (4.5-11.0) X10^3/uL RBC 3.67 L (4.0-5.2) X10^6/uL Hgb 11.7 L (12.0-16.0) g/dL Hct 34.6 L (36-46) % MCV 94.2 (80-100) fL MCH 31.9 (26-34) PG MCHC 33.8 (30-36) % RDW 19.3 H (11.6-14.8) % Plt Count 365 (150-400) X10^3/uL Neut % (Auto) 93.9 H (50-75) % Lymph % (Auto) 2.3 L (25-40) % [place] % (Auto) 2.5 L (3-14) % Eos % (Auto) 1.1 L (2-4) % Baso % (Auto) 0.2 (0-2) % Neut # (Auto) 5600 (5303-8494) /uL PT 12.7 (10.1-12.7) SECONDS INR 1.2 (0.9-1.3) APTT 30 (26.4-36.2) SECONDS Sodium 134 L (137-145) mmol/L Potassium 4.8 (3.4-5.1) mmol/L Chloride 96 L (98-107) mmol/L Carbon Dioxide 25 (22-32) mmol/L BUN 29 H (7-17) mg/dL Creatinine 1.20 H (0.52-1.04) mg/dL Estimated GFR 43.7 L (>60) mL/min BUN/Creatinine Ratio 24.2 H (6-22) Glucose 126 H (80-110) mg/dL Calcium 9.4 (8.4-10.2) mg/dL Total Bilirubin 0.4 (0.2-1.3) mg/dL AST 33 (14-36) IU/L ALT 32 (9-52) IU/L Alkaline Phosphatase 65 (38-126) U/L Total Creatine Kinase < 20 L (30-135) U/L Troponin I < 0.012 (0.01-0.034) ng/mL B-Natriuretic Peptide 103.0 H (<100) Total Protein 7.2 (6.3-8.2) g/dL Albumin 3.8 (3.5-5.0) g/dL Globulin 3.4 (1.7-4.1) g/dL Albumin/Globulin Ratio 1.1 (1.0-2.8) Procalcitonin (<0.5) ng/mL 08/24/17 08/24/17 Range/Units 16:15 16:15 WBC (4.5-11.0) X10^3/uL RBC (4.0-5.2) X10^6/uL Hgb (12.0-16.0) g/dL Hct (36-46) % MCV (80-100) fL MCH (26-34) PG MCHC (30-36) % RDW (11.6-14.8) % Plt Count (150-400) X10^3/uL Neut % (Auto) (50-75) % Lymph % (Auto) (25-40) % [place] % (Auto) (3-14) % Eos % (Auto) (2-4) % Baso % (Auto) (0-2) % Neut # (Auto) (9078-5083) /uL PT (10.1-12.7) SECONDS INR (0.9-1.3) APTT (26.4-36.2) SECONDS Sodium (137-145) mmol/L Potassium (3.4-5.1) mmol/L Chloride (98-107) mmol/L Carbon Dioxide (22-32) mmol/L BUN (7-17) mg/dL Creatinine (0.52-1.04) mg/dL Estimated GFR (>60) mL/min BUN/Creatinine Ratio (6-22) Glucose (80-110) mg/dL Calcium (8.4-10.2) mg/dL Total Bilirubin (0.2-1.3) mg/dL AST (14-36) IU/L ALT (9-52) IU/L Alkaline Phosphatase (38-126) U/L Total Creatine Kinase (30-135) U/L Troponin I (0.01-0.034) ng/mL B-Natriuretic Peptide 89.2 (<100) Total Protein (6.3-8.2) g/dL Albumin (3.5-5.0) g/dL Globulin (1.7-4.1) g/dL Albumin/Globulin Ratio (1.0-2.8) Procalcitonin 0.20 (<0.5) ng/mL Discharge Plan Departure Prescriptions: No Action polyethylene glycol 3350 [Miralax] 17 GM powder in packet 17 gm PO QDAYP PRNQty: 0 RF: 0 coenzyme Q10 [Co Q-10] 100 MG capsule 100 mg PO QDAY Qty: 0 RF: 0 vitamin B complex [B Complex-Vitamin B12] 1 EACH tablet 1 tab PO QDAY Qty: 0 RF: 0 [FEVERFEW] PRN PRNQty: 0 RF: 0 prednisone 20 MG tablet 30 mg PO AMCC Qty: 60 RF: 3 ciprofloxacin HCl [Cipro] 500 MG tablet 500 mg PO BID Qty: 14 RF: 0 ibuprofen 800 MG tablet 800 mg PO Q8HP PRNQty: 1 RF: 0 melatonin 3 MG tablet 3 mg PO HS Qty: 0 RF: 0 ascorbic acid (vitamin C) 500 MG tablet 1,000 mg PO QDAY Qty: 0 RF: 0 doxylamine succinate 25 MG tablet 25 mg PO HS PRNQty: 0 RF: 0 spironolactone 50 MG tablet 50 mg PO QAM Qty: 90 RF: 3 omeprazole 40 MG capsule,delayed release(DR/EC) PO QDAY Qty: 90 RF: 3 simvastatin 40 MG tablet 40 mg PO HS Qty: 90 RF: 3 nortriptyline [Pamelor] 10 MG capsule 10 mg PO HS Qty: 90 RF: 3 propranolol 120 MG capsule,extended release 24 hr 120 mg PO QDAY Qty: 90 RF: 3 lorazepam 1 MG tablet 0.5 mg PO HSP PRNQty: 30 RF: 0 Disabled Parking Permit Qty: 1 RF: 0 acetaminophen [Tylenol Extra Strength] 500 mg tablet 500 mg PO Q4-6H PRNRF: 0 methotrexate sodium 2.5 mg tablet 5 mg PO QWEEK RF: 0 sumatriptan succinate 100 mg tablet 100 mg PO ONCE RF: 0 diclofenac sodium 1 % gel 2 gram TOP QID RF: 0
--- NOTE | 2017-08-24 20:10 | PC.NURSE ---
Decreased o2 by NC to 1L to titrate o2 >94%. Pt states O2 by NC helping with symptoms.
[2017-08-24 20:59] LABS: Lactate (Lactic Acid) 1.9 mmol/L (0.7-2.1)
[2017-08-24 22:29] LABS: Troponin I < 0.012 ng/mL (0.01-0.034)
[2017-08-25] VITALS (15 sets, daily range): BP systolic 105–139; BP diastolic 55–79; PULSE 74–105; RESP 14–20; TEMP 36.1–37.7; O2SAT 86–100
[2017-08-25] MEDS: NORTRIPTYLINE 10 MG CAPSULE PO ×2 (00:29→21:17)
--- NOTE | 2017-08-25 01:35 | PC.NURSE ---
Addendum entered by Yahaira Ayala R.N. 08/25/17 01:39: 0029 Patient was medicated with Extra strength Tylenol 500mg for complaint of right knee pain. Medication not able to be scanned so medication was verified with [facility]. Original Note: 0000 Patient is alert and oriented. Breath sounds CTA but complains of SOB and 5/10 chest discomfort whenever she coughs. Cough is dry, intermittent and non productive. Oxygen at 1L/min per NC for comfort and sat is 98%. HRR and is on tele with rate in high 90's to low 100's. Denies nausea. BT hypoactive and states she has problems with constipation; is passing flatus. Denies dysuria, frequency, urgency or incontinence. Independent with bed mobility. Assisted to bathroom with SBA and appears to be steady on feet; denies any feeling of unsteadiness or weakness. Skin in good condition. Did have recent breast biopsy and has bruising and small scabbed area lateral to left breast nipple. Oriented to room and bed controls. Fall risk score is medium; bed alarm activated for the night.
[2017-08-25 05:55] LABS: Troponin I < 0.012 ng/mL (0.01-0.034)
[2017-08-25] MEDS: PANTOPRAZOLE 20 MG TABLET PO (06:32)
--- NOTE | 2017-08-25 09:25 | CM.DANOTE ---
DCP: assessment: Case received, EMR reviewed and met with pt. Introduced self and role. DCP template completed with info currently available. Pt is a 77 year old female who admitted last night to care of FMA: Dr. Nevarez Payer: Medicare and [facility]. PCP: Dr. Sam Nevarez had just been in to see pt and she confirmed that she is staying at least until tomorrow. Dr. Vargas will see me on Saturday. Dr. Nevarez's note is not available yet. At this point pt plans home when stable for same. Will follow as POC unfolds. She is currently on . Does not use this at home.
[2017-08-25] MEDS: predniSONE 10 MG TABLET 30 MG PO (09:48)
[2017-08-25] MEDS: PROPRANOLOL ER 60 MG CAPSULE 120 MG PO (09:48)
[2017-08-25] MEDS: ENOXAPARIN 40 MG/0.4 ML SYRINGE SUBCUT (09:48)
[2017-08-25] MEDS: SPIRONOLACTONE 50 MG TABLET PO (09:49)
--- NOTE | 2017-08-25 10:37 | PM.HP.1 ---
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) Herpes simplex virus (HSV) infection (Chronic) History of migraine headaches (Chronic) Surgical History History of esophagogastroduodenoscopy (EGD) (06/18/12) Status post bunionectomy Status post colonoscopy (01/07/07) Status post dilation and curettage Family & Social History Family History: Reviewed 08/25/17 by Florentino Nevarez MD Social History: household members spouse Prior Living Arrangements House Safety & Behavioral: Feels Safe in Current Yes Environment Been Physically Hurt or No Threatened By a Person Suicidal Ideation Description None Suicide Plan Description No Plan Tobacco & Substance use: Tobacco type cigarettes Smoking Status Former smoker alcohol intake current alcohol intake frequency a few times a week Substance Use Type does not use Meds Home Medications Medication Instructions Recorded Confirmed Type [FEVERFEW] 380 mg PO DAILY #0 06/17/17 08/24/17 History coenzyme Q10 [Co Q-10] 100 mg PO QDAY #0 06/17/17 08/24/17 History polyethylene glycol 3350 [Miralax] 17 gm PO QDAYP #0 06/17/17 08/24/17 History vitamin B complex [B 1 tab PO QDAY #0 06/17/17 08/24/17 History Complex-Vitamin B12] prednisone 30 mg PO AMCC #60 tab 06/19/17 08/24/17 Rx ascorbic acid (vitamin C) 1,000 mg PO QDAY #0 06/25/17 08/24/17 History doxylamine succinate 25 mg PO HS PRN #0 06/25/17 08/24/17 History melatonin 3 mg PO HS #0 06/25/17 08/24/17 History nortriptyline [Pamelor] 10 mg PO HS #90 cap 06/25/17 08/24/17 Rx propranolol 120 mg PO QDAY #90 cap 06/25/17 08/24/17 Rx simvastatin 40 mg PO HS #90 tab 06/25/17 08/24/17 Rx spironolactone 50 mg PO QAM #90 tab 06/25/17 08/24/17 Rx acetaminophen 500 mg tablet 1,000 mg PO TID PRN 07/30/17 08/24/17 History diclofenac 1 % topical gel 2 gram TOP QID PRN 07/30/17 08/24/17 History methotrexate sodium 2.5 mg tablet 5 mg PO DIRECTED 07/30/17 08/24/17 History sumatriptan 100 mg tablet 100 mg PO ONCE PRN 07/30/17 08/24/17 History acetaminophen-codeine 1 tab PO QPM 08/24/17 08/24/17 History [Tylenol-Codeine #3] lorazepam 1 mg PO HSP PRN 08/24/17 08/24/17 History omeprazole 40 mg PO DAILY 08/25/17 08/25/17 History Allergies Allergy/AdvReac Type Severity Reaction Status Date / Time verapamil Allergy Mild UNKNOWN Verified 07/30/17 15:49 Exam Vital Signs (past 8 hours): Vital Signs - 8 hr 08/25/17 03:00 08/25/17 06:36 08/25/17 06:51 Temperature 99.3 F Pulse Rate 100 H Respiratory Rate 20 Blood Pressure 139/79 H Pulse Oximetry 100 86 L 89 L 08/25/17 07:00 08/25/17 07:51 08/25/17 08:00 Temperature 99.8 F H Pulse Rate 98 H Respiratory Rate 14 Blood Pressure 111/57 L Pulse Oximetry 93 94 93 08/25/17 08:15 Temperature Pulse Rate Respiratory Rate Blood Pressure Pulse Oximetry 93 Pulse Oximetry 93 Oxygen Delivery Method Nasal Cannula Oxygen Flow Rate 3 Objective Labs Result Diagrams: 08/24/17 16:15 08/24/17 16:15 Labs: Laboratory Results - last 24 hr 08/24/17 08/24/17 08/24/17 16:15 16:15 16:15 WBC 5.9 RBC 3.67 L Hgb 11.7 L Hct 34.6 L MCV 94.2 MCH 31.9 MCHC 33.8 RDW 19.3 H Plt Count 365 Neut % (Auto) 93.9 H Lymph % (Auto) 2.3 L [place] % (Auto) 2.5 L Eos % (Auto) 1.1 L Baso % (Auto) 0.2 Neut # (Auto) 5600 PT 12.7 INR 1.2 APTT 30 Sodium 134 L Potassium 4.8 Chloride 96 L Carbon Dioxide 25 BUN 29 H Creatinine 1.20 H Estimated GFR 43.7 L BUN/Creatinine Ratio 24.2 H Glucose 126 H Lactate Calcium 9.4 Total Bilirubin 0.4 AST 33 ALT 32 Alkaline Phosphatase 65 Total Creatine Kinase < 20 L Troponin I < 0.012 B-Natriuretic Peptide 103.0 H Total Protein 7.2 Albumin 3.8 Globulin 3.4 Albumin/Globulin Ratio 1.1 Procalcitonin 08/24/17 08/24/17 08/24/17 16:15 16:15 19:40 WBC RBC Hgb Hct MCV MCH MCHC RDW Plt Count Neut % (Auto) Lymph % (Auto) [place] % (Auto) Eos % (Auto) Baso % (Auto) Neut # (Auto) PT INR APTT Sodium Potassium Chloride Carbon Dioxide BUN Creatinine Estimated GFR BUN/Creatinine Ratio Glucose Lactate 1.9 Calcium Total Bilirubin AST ALT Alkaline Phosphatase Total Creatine Kinase Troponin I B-Natriuretic Peptide 89.2 Total Protein Albumin Globulin Albumin/Globulin Ratio Procalcitonin 0.20 08/24/17 08/25/17 21:53 05:21 WBC RBC Hgb Hct MCV MCH MCHC RDW Plt Count Neut % (Auto) Lymph % (Auto) [place] % (Auto) Eos % (Auto) Baso % (Auto) Neut # (Auto) PT INR APTT Sodium Potassium Chloride Carbon Dioxide BUN Creatinine Estimated GFR BUN/Creatinine Ratio Glucose Lactate Calcium Total Bilirubin AST ALT Alkaline Phosphatase Total Creatine Kinase Troponin I < 0.012 < 0.012 B-Natriuretic Peptide Total Protein Albumin Globulin Albumin/Globulin Ratio Procalcitonin Quality VTE Deep Vein Thrombosis/Pulmonary Embolism Present on Admission: No
--- NOTE | 2017-08-25 10:41 | PM.HP.1 ---
History of Present Illness Date Patient Seen: 08/25/17 Time Patient Seen: 10:43 Chief complaint: Chest Pain & SOB Narrative: Patient is a [age]-year-old female patient of Dr. Vargas admitted last night through the emergency room. Patient was admitted with a presumptive diagnosis of congestive heart failure. The patient has been complaining of shortness of breath for somewhere between 2 and 3 weeks over the course of the 2-3 weeks that shortness of breath has increased over the last couple days as fairly intense. She had no fever no chills no mucus production no cough no edema no calf pain Additionally she developed some retrosternal chest pain is seem to be exertional this however is not present over the last several days primarily because she has not been exertional. She came to the emergency room because of the increasing shortness of breath. She has history of hypertension hyperlipidemia on medications for same. Additionally she has history of some sort of rheumatologic disorder of initially felt to be polymyalgia rheumatica and perhaps more recently pseudogout. She was hospitalized here for arthralgias in June. She has been on methotrexate and prednisone for the above diagnosis Recently apparently her methotrexate was increased from 8 tablets once a week to 10 tablets once a week and she relates the progression of her shortness of breath with the timing of the increased dose. Addition she has been tapering off the prednisone down to 10 mg daily She has no history of coronary artery disease no history of angina. Her has COPD and is on oxygen 24 hr a day. Her evaluation in the ER included lab studies CT and x-ray and patient was admitted with presumptive diagnosis of congestive heart failure versus is viral pneumonia. 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) Herpes simplex virus (HSV) infection (Chronic) History of migraine headaches (Chronic) Surgical History History of esophagogastroduodenoscopy (EGD) (06/18/12) Status post bunionectomy Status post colonoscopy (01/07/07) Status post dilation and curettage Family & Social History Family History: Reviewed 08/25/17 by Florentino Nevarez MD Social History: household members spouse Prior Living Arrangements House Safety & Behavioral: Feels Safe in Current Yes Environment Been Physically Hurt or No Threatened By a Person Suicidal Ideation Description None Suicide Plan Description No Plan Tobacco & Substance use: Tobacco type cigarettes Smoking Status Former smoker alcohol intake current alcohol intake frequency a few times a week Substance Use Type does not use Meds Home Medications Medication Instructions Recorded Confirmed Type [FEVERFEW] 380 mg PO DAILY #0 06/17/17 08/24/17 History coenzyme Q10 [Co Q-10] 100 mg PO QDAY #0 06/17/17 08/24/17 History polyethylene glycol 3350 [Miralax] 17 gm PO QDAYP #0 06/17/17 08/24/17 History vitamin B complex [B 1 tab PO QDAY #0 06/17/17 08/24/17 History Complex-Vitamin B12] prednisone 30 mg PO AMCC #60 tab 06/19/17 08/24/17 Rx ascorbic acid (vitamin C) 1,000 mg PO QDAY #0 06/25/17 08/24/17 History doxylamine succinate 25 mg PO HS PRN #0 06/25/17 08/24/17 History melatonin 3 mg PO HS #0 06/25/17 08/24/17 History nortriptyline [Pamelor] 10 mg PO HS #90 cap 06/25/17 08/24/17 Rx propranolol 120 mg PO QDAY #90 cap 06/25/17 08/24/17 Rx simvastatin 40 mg PO HS #90 tab 06/25/17 08/24/17 Rx spironolactone 50 mg PO QAM #90 tab 06/25/17 08/24/17 Rx acetaminophen 500 mg tablet 1,000 mg PO TID PRN 07/30/17 08/24/17 History diclofenac 1 % topical gel 2 gram TOP QID PRN 07/30/17 08/24/17 History methotrexate sodium 2.5 mg tablet 5 mg PO DIRECTED 07/30/17 08/24/17 History sumatriptan 100 mg tablet 100 mg PO ONCE PRN 07/30/17 08/24/17 History acetaminophen-codeine 1 tab PO QPM 08/24/17 08/24/17 History [Tylenol-Codeine #3] lorazepam 1 mg PO HSP PRN 08/24/17 08/24/17 History omeprazole 40 mg PO DAILY 08/25/17 08/25/17 History Allergies Allergy/AdvReac Type Severity Reaction Status Date / Time verapamil Allergy Mild UNKNOWN Verified 07/30/17 15:49 Review of Systems Review of Systems All systems reviewed & are unremarkable except as noted in HPI and below Exam Vital Signs (past 8 hours): Vital Signs - 8 hr 08/25/17 03:00 08/25/17 06:36 08/25/17 06:51 Temperature 99.3 F Pulse Rate 100 H Respiratory Rate 20 Blood Pressure 139/79 H Pulse Oximetry 100 86 L 89 L 08/25/17 07:00 08/25/17 07:51 08/25/17 08:00 Temperature 99.8 F H Pulse Rate 98 H Respiratory Rate 14 Blood Pressure 111/57 L Pulse Oximetry 93 94 93 08/25/17 08:15 Temperature Pulse Rate Respiratory Rate Blood Pressure Pulse Oximetry 93 Pulse Oximetry 93 Oxygen Delivery Method Nasal Cannula Oxygen Flow Rate 3 Narrative Exam Narrative: GENERAL: SKIN: No specific lesions or rash. HEENT: Sclera nonicteric, and EOMI. TMs and canals normal. Nasal mucosa normal and septum midline. Oropharnyx without lesions. NECK: Midline trachea, thyroid nontender and not enlarged. No lymphadenopathy. Carotids without bruits. BACK: No obvious deformity and nontender BREASTS: Not examined CHEST: Clear and symmetric breath sounds. CV: RRR no audible murmur. ABDOMEN: Soft nontender without viceromegaly or bruits.] EXTREMITIES: No cyanosis clubbing or edema. MUSCULOSKELETAL: No gross joint changes. NEURO: Cranial nerves grossly intact. Sensory motor normal. DTRs symmetric knees and ankles, 2+ bilaterally. She is examined in her hospital bed she is laying down and resting quietly appears in minimal shortness of breath. Her oxygen saturation on 4 L was in fact 96%. I cut back her oxygen to 2 L and then a matter of 2 min her oxygen saturation decreased to 88% and observe her brief which she is taking very shallow breaths. When she sat up and took deep breaths or O2 sats increased to 96%. Additionally her chest exam showed her lungs to be entirely clear She had no calf tenderness and she had no edema Objective Labs Result Diagrams: 08/24/17 16:15 08/24/17 16:15 Labs: Laboratory Results - last 24 hr 08/24/17 08/24/17 08/24/17 16:15 16:15 16:15 WBC 5.9 RBC 3.67 L Hgb 11.7 L Hct 34.6 L MCV 94.2 MCH 31.9 MCHC 33.8 RDW 19.3 H Plt Count 365 Neut % (Auto) 93.9 H Lymph % (Auto) 2.3 L [place] % (Auto) 2.5 L Eos % (Auto) 1.1 L Baso % (Auto) 0.2 Neut # (Auto) 5600 PT 12.7 INR 1.2 APTT 30 Sodium 134 L Potassium 4.8 Chloride 96 L Carbon Dioxide 25 BUN 29 H Creatinine 1.20 H Estimated GFR 43.7 L BUN/Creatinine Ratio 24.2 H Glucose 126 H Lactate Calcium 9.4 Total Bilirubin 0.4 AST 33 ALT 32 Alkaline Phosphatase 65 Total Creatine Kinase < 20 L Troponin I < 0.012 B-Natriuretic Peptide 103.0 H Total Protein 7.2 Albumin 3.8 Globulin 3.4 Albumin/Globulin Ratio 1.1 Procalcitonin 08/24/17 08/24/17 08/24/17 16:15 16:15 19:40 WBC RBC Hgb Hct MCV MCH MCHC RDW Plt Count Neut % (Auto) Lymph % (Auto) [place] % (Auto) Eos % (Auto) Baso % (Auto) Neut # (Auto) PT INR APTT Sodium Potassium Chloride Carbon Dioxide BUN Creatinine Estimated GFR BUN/Creatinine Ratio Glucose Lactate 1.9 Calcium Total Bilirubin AST ALT Alkaline Phosphatase Total Creatine Kinase Troponin I B-Natriuretic Peptide 89.2 Total Protein Albumin Globulin Albumin/Globulin Ratio Procalcitonin 0.20 08/24/17 08/25/17 21:53 05:21 WBC RBC Hgb Hct MCV MCH MCHC RDW Plt Count Neut % (Auto) Lymph % (Auto) [place] % (Auto) Eos % (Auto) Baso % (Auto) Neut # (Auto) PT INR APTT Sodium Potassium Chloride Carbon Dioxide BUN Creatinine Estimated GFR BUN/Creatinine Ratio Glucose Lactate Calcium Total Bilirubin AST ALT Alkaline Phosphatase Total Creatine Kinase Troponin I < 0.012 < 0.012 B-Natriuretic Peptide Total Protein Albumin Globulin Albumin/Globulin Ratio Procalcitonin Assessment & Plan Plan: Assessment/Plan Narrative: 1. Patient with 2 to three-week history of shortness of breath. Data from emergency room is reviewed. She had normal BNP. A she had chest CT and chest x-ray that were consistent with bilateral pulmonary infiltrates consistent with pulmonary edema as per radiologist. Additionally consistent with atypical pneumonia. 2. She does have significant oxygen needs. Para 3. She does tend to have an issue with hypoventilation. 4. She had normal troponins therefore did not have an acute myocardial infarction. Still could be having at angina as described by her exertional chest pain. 5. The patient will be treated for atypical pneumonia with azithromycin empirically. 6. Additionally this also may well be consistent with pulmonary fibrosis secondary to her methotrexate and so I will give her Solu-Medrol 60 mg IV every 6 hr empirically for this. Remainder of her medical problems appear to be stable. 7. Dr. Vargas to resume care tomorrow upon his return Quality VTE Deep Vein Thrombosis/Pulmonary Embolism Present on Admission: No
[2017-08-25] MEDS: AZITHROMYCIN 250 MG TABLET 500 MG PO (11:11)
[2017-08-25] MEDS: methylPREDNISolone 125 MG/2 ML VIAL 60 MG IV ×3 (11:11→21:17)
[2017-08-25 14:25] LABS: D Dimer 585 ng/mL (<230)
--- NOTE | 2017-08-25 14:43 | PC.NURSE ---
pt d-dimer 585, contacted Dr. Nevarez message service to report result
[2017-08-25] MEDS: MELATONIN 3 MG TABLET PO (21:17)
[2017-08-26] VITALS (9 sets, daily range): BP systolic 102–129; BP diastolic 63–71; PULSE 68–75; RESP 16–20; TEMP 36.4–37.5; O2SAT 90–96
--- NOTE | 2017-08-26 00:27 | PC.NURSE ---
Resting quietly, easily aroused A&O x 4. Denies any pain/discomfort at rest. Tele in place. O2 @ 3L nasal cannula, denies SOB at rest. Discussed fall risk and patient states understanding, states will call prior to getting OOB. Call light within reach and bed alarm on
--- NOTE | 2017-08-26 02:14 | PC.NURSE ---
Bed alarm sounded. Patient attempting to get OOB on own. Reinforced fall risk with patient. States understanding and agrees to use call light prior to getting OOB. Patient assisted back to bed past voiding and call light within reach and bed alarm on.
[2017-08-26] MEDS: methylPREDNISolone 125 MG/2 ML VIAL 60 MG IV ×4 (04:06→21:08)
[2017-08-26] MEDS: PANTOPRAZOLE 20 MG TABLET PO (05:47)
[2017-08-26] MEDS: ACETAMINOPHEN 325 MG TABLET 650 MG PO ×2 (06:41→19:12)
[2017-08-26] MEDS: DICLOFENAC 1% GEL 100 GM 1 APPLIC TOP (06:44)
--- NOTE | 2017-08-26 08:28 | P.PN_ITS ---
Subjective Date Patient Seen: 08/26/17 Time Patient Seen: 08:21 Interval history: Patient really has no complaints. Does not short of breath at all on oxygen. Still gets some mid chest discomfort after she has been coughing for a while. Still coughing a fair amount but it is nonproductive Joints are relatively stable at this time. Exam Vital Signs (past 8 hours): Vital Signs - 8 hr 3 08/26/17 04:14 08/26/17 07:16 Temperature 99.5 F Pulse Rate 75 Respiratory Rate 16 Blood Pressure 117/66 Pulse Oximetry 92 95 Pulse Oximetry 95 Oxygen Delivery Method Nasal Cannula Oxygen Flow Rate 4 Narrative Exam Narrative: HEENT-unremarkable, normocephalic atraumatic Neck-no lymphadenopathy no bruits Lungs-clear anteriorly and posteriorly no wheezes no crackles good breath sounds Heart-regular rate and rhythm no murmur rub or gallop normal S1-S2 Abdomen-positive bowel tones soft nontender nondistended no hepatosplenomegaly no masses palpable Neuro-normal to screening exam, gait not tested Extremities-no cyanosis clubbing or edema Objective Labs Result Diagrams: 08/24/17 16:15 08/24/17 16:15 Labs: Laboratory Results - last 24 hr 08/25/17 14:05 D-Dimer 585 H Assessment & Plan Plan: Assessment/Plan Narrative: 1. Probable interstitial pneumonitis-discussing patient's clinical course with her reviewing her lab results which includes a normal white blood cell count no evidence of fever normal procalcitonin lactate levels and reviewing her chest x- ray and chest CT which look like fairly classic interstitial infiltrates to me, I believe for diagnosis would either be an atypical pneumonia perhaps related to her me know suppression for her joint disease and/or a hypersensitivity type pneumonitis related to the methotrexate most likely. If indeed she has rheumatoid arthritis then she could also be developing element of pulmonary fibrosis related to the rheumatoid arthritis itself. Her rheumatological diagnosis is still up in the air, but includes PMR, rheumatoid arthritis, and pseudogout per most recent rheumatology note. Overall looking at her clinical picture I believe that a hypersensitivity type pneumonitis is the most likely diagnosis. Therefore I think she should remain off methotrexate indefinitely. She should continue on higher dose IV steroids switch to oral steroids upon discharge and will need oxygen therapy. Hopefully this will begin to resolve over time. However given her potential for an atypical pneumonia I think a course of treatment with something such as azithromycin which is already been started is entirely appropriate as well. I would also check repeat echocardiography to ensure there is no evidence of pulmonary edema although that seems extremely unlikely for there to be a cardiac source given her negative BNP as well as a very recent normal echocardiogram. There has been concern from clinical staff that this could represent a pulmonary embolism but she has a negative chest CT angiogram and there are infiltrates on chest x-ray and CT scanning that are entirely inconsistent with pulmonary embolism. Therefore I think even small PEs would not be an appropriate diagnosis. D-dimer was checked yesterday and was abnormal but can be abnormal in the setting of many different diseases. Therefore I do not think the clinical picture fits diagnosis of pulmonary embolism whatsoever. 2. Status post breast biopsy-patient with recent breast biopsy for abnormality I walked her feet. Pathology still pending. I suppose she could have some connection for potential breast cancer with her pulmonary changes as above but that seems extremely unlikely to me. Will await pathology for details regarding her status and I discussed that with her. 3. PMR/RA/pseudogout-should be much improved back on higher dose steroids. She will need to continue on steroids for pulmonary disease which could have the added benefit of suppressing her rheumatological disorder. Quality VTE Deep Vein Thrombosis/Pulmonary Embolism Present on Admission: No
[2017-08-26] MEDS: AZITHROMYCIN 250 MG TABLET PO (09:07)
[2017-08-26] MEDS: ENOXAPARIN 40 MG/0.4 ML SYRINGE SUBCUT (09:07)
[2017-08-26] MEDS: SPIRONOLACTONE 50 MG TABLET PO (09:08)
--- NOTE | 2017-08-26 10:22 | PC.NURSE ---
Day shift: A&Ox3. 2L NC 95%. Encouraged to deep breath. No pain. Has not been impulsive and is using call light proper. Agrees to not get OOB w/o help.
--- NOTE | 2017-08-26 19:25 | PC.NURSE ---
Keisha note: Awake, alert and oriented. Continue on O2 at 2L via NC with O2 sats 96%. SOB noted with mild exertion. No c/o chest pain at rest, reports mild discomfort to chest described as an ache with deep inspiration and cough only. C/O headache to temporal region described as a mild intermittent ache, 3/10, medicated with Tylenol 650 mg PO with adequate pain control. No dizziness or visual disturbance.
[2017-08-26] MEDS: MELATONIN 3 MG TABLET PO (20:44)
[2017-08-26] MEDS: NORTRIPTYLINE 10 MG CAPSULE PO (20:44)
[2017-08-27] VITALS (13 sets, daily range): BP systolic 106–132; BP diastolic 48–81; PULSE 63–93; RESP 16–20; TEMP 36.1–37.1; O2SAT 91–96
[2017-08-27] MEDS: methylPREDNISolone 125 MG/2 ML VIAL 60 MG IV ×4 (05:15→21:46)
[2017-08-27] MEDS: PANTOPRAZOLE 20 MG TABLET PO (05:15)
[2017-08-27] MEDS: ACETAMINOPHEN 325 MG TABLET 650 MG PO ×2 (07:44→20:24)
--- NOTE | 2017-08-27 08:31 | P.DS_ITS ---
History of Present Illness Date Patient Seen: 08/27/17 Time Patient Seen: 08:25 Chief complaint: Chest Pain & SOB Narrative: Patient is a [age]-year-old female patient of Dr. Vargas admitted last night through the emergency room. Patient was admitted with a presumptive diagnosis of congestive heart failure. The patient has been complaining of shortness of breath for somewhere between 2 and 3 weeks over the course of the 2-3 weeks that shortness of breath has increased over the last couple days as fairly intense. She had no fever no chills no mucus production no cough no edema no calf pain Additionally she developed some retrosternal chest pain is seem to be exertional this however is not present over the last several days primarily because she has not been exertional. She came to the emergency room because of the increasing shortness of breath. She has history of hypertension hyperlipidemia on medications for same. Additionally she has history of some sort of rheumatologic disorder of initially felt to be polymyalgia rheumatica and perhaps more recently pseudogout. She was hospitalized here for arthralgias in June. She has been on methotrexate and prednisone for the above diagnosis Recently apparently her methotrexate was increased from 8 tablets once a week to 10 tablets once a week and she relates the progression of her shortness of breath with the timing of the increased dose. Addition she has been tapering off the prednisone down to 10 mg daily She has no history of coronary artery disease no history of angina. Her has COPD and is on oxygen 24 hr a day. Her evaluation in the ER included lab studies CT and x-ray and patient was admitted with presumptive diagnosis of congestive heart failure versus is viral pneumonia. {from Dr. Nevarez's history and physical 08/25/2017} Discharge Providers Date of admission: 08/24/17 21:25 Primary care physician: Kevon Vargas MD Consults: Discharge provider: Kevon Vargas MD Discharge Date: 08/27/17 Summary Discharge Diagnosis: 1. 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 Hypoxia 3. Rheumatoid arthritis versus PMR Hospital Course: Patient was admitted to the hospital floor because of her presentation with atypical chest pain and hypoxia. Chest x-ray was entirely consistent with an interstitial process as was her CT scan of the chest. No evidence of pulmonary emboli but classic interstitial infiltrates. This was felt to be most likely due to either an atypical pneumonia due to her ongoing immunosuppression with methotrexate and prednisone for her autoimmune disease versus more likely a reaction to the methotrexate causing an interstitial pneumonitis or hypersensitivity type pneumonitis. Patient's methotrexate was discontinued she was placed on intravenous corticosteroids. She has ox will of course placed on oxygen replacement therapy. Patient's symptoms began to subside somewhat with the oxygen placement therapy and the institution of IV corticosteroids. Patient was felt to be stable for discharge by the morning of the 27 of August. She will need home oxygen and need to continue on a slightly higher dose of corticosteroids at home. She will have her methotrexate permanently discontinued and eventually will be referred back to Rheumatology for thoughts regarding other treatment options for her autoimmune disease I expect that her degree of inflammatory change in her long will likely although not for sure, improve over time probably 4-8 weeks and she should be able to be weaned off of oxygen. She will need to continue on relatively higher dose corticosteroids during this interval but hopefully that can be reduced to least from a pulmonary standpoint. Whether not her autoimmune disease causing her joint symptoms will need additional corticosteroids or additional treatment will be uncertain and decision making defer to Rheumatology. Patient was initially attempted to be discharged on the 27 of August. However this was canceled after concerns were raised by Respiratory therapy regarding patient's significant oxygen desaturation with activity. Patient remained in the hospital overnight. Upon careful review of all available data, and reviewing this with the patient and nursing staff in detail, it does seem clear to me that patient has interstitial lung disease as a source of her hypoxia which is most likely due to methotrexate but could also be an atypical pneumonia. She is being actively treated for the above and oxygen replacement therapy at home is entirely appropriate. She may will desaturate with activity but assuming she recovers at rest, there is no reason to keep her in the hospital. Concern was raised again by Respiratory therapy regarding possible pulmonary embolism with suggestion of performing a ventilation perfusion scan. Discussion was held with members of her care team pointing out the patient has clear classic interstitial infiltrates on imaging both CT and plain chest x-ray that are not consistent with pulmonary embolism. She had a CT angiography exam performed did not show evidence of large vessel or even small vessel pulmonary emboli. Therefore given that we have an alternate diagnosis for hypoxia (that being the interstitial changes seen) and no evidence of pulmonary embolism on her CT angiography I do not believe she has had a pulmonary embolism as a source of her symptoms. Ventilation perfusion imaging will clearly be abnormal given the changes seen on chest x-ray and CT and will therefore be of little value I believe in this setting to help rule out pulmonary embolism. Therefore that is not appropriate test to be performed if indeed I had a high index of suspicion for pulmonary embolism I believe the next test would be right heart catheterization with pulmonary artery angiography which I do not believe as above is required in this case. I discussed this all at length with the patient given that she had had input from many members of her care team here at the hospital and I think she fully understands what I believe to be going on with her lung disease and what to expect for the future. Greater than 40 min were spent arranging this patient's discharge the course of the day on the as well as continuing on into the with long discussions with patient patient's nursing staff respiratory therapy etc. Status at Discharge Cognitive/behavioral status at discharge: Normal/baseline Functional status at discharge: independent ambulation Overall status at discharge: patient is back to baseline Exam Vital Signs (past 8 hours): Vital Signs - 8 hr 3 08/27/17 01:00 08/27/17 01:05 08/27/17 03:49 Temperature 98.6 F 98.8 F Pulse Rate 73 63 Respiratory Rate 16 19 Blood Pressure 116/58 L 126/72 H Pulse Oximetry 94 96 96 Pulse Oximetry 96 Oxygen Delivery Method Nasal Cannula Oxygen Flow Rate 2 Narrative Exam Narrative: HEENT-unremarkable, normocephalic atraumatic Neck-no lymphadenopathy no bruits Lungs-clear anteriorly and posteriorly no wheezes no crackles good breath sounds Heart-regular rate and rhythm no murmur rub or gallop normal S1-S2 Abdomen-positive bowel tones soft nontender nondistended no hepatosplenomegaly no masses palpable Neuro-normal to screening exam, gait not tested Extremities-no cyanosis clubbing or edema Objective Labs Result Diagrams: 08/24/17 16:15 08/24/17 16:15 Discharge Plan Discharge Plan Patient Disposition: Home, Self-Care Discharge comment: needs home oxygen set up before discharge Provider Discharge Instructions Diet: Diet as Tolerated Activity: ad otoniel Oxygen: 3 l/min NC continuous (or as per RT) Discharge Data Primary Care Provider: Kevon Vargas Attending Provider: Kevon Vargas Admit Date/Time: 08/24/17 21:25 Quality VTE Deep Vein Thrombosis/Pulmonary Embolism Present on Admission: No
--- NOTE | 2017-08-27 09:11 | CM.DPC ---
DCP: continued: EMR reviewed, d/c to home order noted and with addition of home o2. Met with pt in followup to her d/c plan. Pt says she is comfortable with the use of home o2. She states Dr. Vargas anticiptates this will only be needed a couple of months and her has been on home o2 for years. Discussed ? HH. She states she does not think this would be helpful. She has no problem following up with her PCP Dr. Vargas in clinic. Pt's is picking her up. RT is process of getting pt set up for the home o2. P: home today as noted. Clinic followup.
[2017-08-27] MEDS: PROPRANOLOL ER 60 MG CAPSULE 120 MG PO (10:29)
[2017-08-27] MEDS: ENOXAPARIN 40 MG/0.4 ML SYRINGE SUBCUT (10:29)
[2017-08-27] MEDS: AZITHROMYCIN 250 MG TABLET PO (10:29)
[2017-08-27] MEDS: SPIRONOLACTONE 50 MG TABLET PO (10:30)
--- NOTE | 2017-08-27 15:55 | P.PN_ITS ---
Subjective Date Patient Seen: 08/27/17 Time Patient Seen: 07:52 Interval history: Patient basically feels about the same. Dyspneic with activity. Is anxious to go home at any point. Exam Vital Signs (past 8 hours): Vital Signs - 8 hr 3 08/27/17 11:00 Temperature 97.5 F L Pulse Rate 85 Respiratory Rate 18 Blood Pressure 106/63 Pulse Oximetry 96 Pulse Oximetry 96 Oxygen Delivery Method Nasal Cannula Oxygen Flow Rate 2 Narrative Exam Narrative: HEENT-unremarkable, normocephalic atraumatic Neck-no lymphadenopathy no bruits Lungs-clear anteriorly and posteriorly no wheezes no crackles good breath sounds Heart-regular rate and rhythm no murmur rub or gallop normal S1-S2 Abdomen-positive bowel tones soft nontender nondistended no hepatosplenomegaly no masses palpable Neuro-normal to screening exam, gait not tested Extremities-no cyanosis clubbing or edema Objective Labs Result Diagrams: 08/24/17 16:15 08/24/17 16:15 Assessment & Plan Plan: Assessment/Plan Narrative: 1. Interstitial lung disease/hypersensitivity pneumonitis-patient is still quite hypoxic with any activity. Replacement oxygen does not seem to make a huge difference as her oxygen saturation is at 85-86% on 4 L and similar on 15 L via nasal cannula. I really think she is probably okay to go home. It is going to take some time for her inflammatory process in her lungs to calm enough for this to improve. Respiratory therapy continues to be quite concerned this could represent pulmonary embolism but pulmonary embolism as noted previously does not produce infiltrates and her CT scan was normal. The time of seen any sort of infiltrative changes with there is actual pulmonary infarction which would be easily diagnosed with CT scan therefore I think any further evaluation for pulmonary embolism is not appropriate. She should continue on corticosteroids and oxygen therapy and remain off methotrexate which I think is the mcneil to her improving. If indeed she has atypical pneumonia that perhaps use at home ice will make some difference and she should continue on that. Work to try and send her home with replacement oxygen therapy at 3-4 L so that her oxygen saturation at rest is 88+ percent even if it does drop somewhat with activity. As Long as she recovers at rest I am okay with her going home. Quality VTE Deep Vein Thrombosis/Pulmonary Embolism Present on Admission: No
--- NOTE | 2017-08-27 16:06 | RT ---
While evaluating patient for home oxygen. Patient was short of breath throughout the walk. Her oxygen saturation on room air on the side of the bed was 88%, at this time patients oxygen was increased to 3LPM to have saturations above 95% before we started ambulating. Once ambulating patients saturation started to decline to 88% asked patient to stop her walked til her oxygen increased and patient continued to desaturate to 84% on 15LPM. Once test was completed patient continued to be short of breath increased patients oxygen to 5lpm on nasal cannula in patients room so her saturation would increase while in bed patient was stable when leaving room her saturation at 92%. Nir Walker the regional sales consultant for [employer] was also present and also explained to patients Nurse Rosemary Limon that [facility] could not cover home oxygen unless the diagnosis was a chronic issue, he also discussed with the patient probable out of pocket oxygen use if insurance did not cover oxygen. After Home oxygen test was done talked to Doctor Kevon Vargas that patient presents with symptoms of a pulmonary embolism and that a V/Q scan would be appropriate to rule out any probable pulmonary embolism, doctor Vargas dismissed the idea by stating that her CT showed no signs of a embolism and that her D-dimer was elevated for other reasons.
[2017-08-27] MEDS: NORTRIPTYLINE 10 MG CAPSULE PO (21:47)
[2017-08-27] MEDS: MELATONIN 3 MG TABLET PO (21:47)
--- NOTE | 2017-08-27 22:10 | PC.NURSE ---
Keisha shift: Bela continued to need supplemental O2 throughout shift, shortness of breath with minimal exertion exhibited. Using 3L NC to maintain 92-94%. Patient states to be able to pay out of pocket cost for home O2 usage. Plan is to go home tomorrow with home O2. Independent in room, vital signs otherwise stable. PO tylenol for headache and knee pain.
[2017-08-28 01:21] VITALS: O2SAT 84; O2SAT 93
[2017-08-28 04:00] VITALS: BP 119/58; PULSE 64; RESP 17; TEMP 36.8; O2SAT 94
[2017-08-28] MEDS: methylPREDNISolone 125 MG/2 ML VIAL 60 MG IV (05:29)
[2017-08-28] MEDS: SODIUM CHLORIDE 0.9% FLUSH 10 ML IV ×2 (05:29→09:38)
[2017-08-28] MEDS: PANTOPRAZOLE 20 MG TABLET PO (05:29)
[2017-08-28] MEDS: ACETAMINOPHEN 325 MG TABLET 650 MG PO (05:34)
--- NOTE | 2017-08-28 06:32 | PC.NURSE ---
Assumed care of pt from outgoing shift at 2300 6-19. pt awake. voided in BR. on 3L NC with humidification. PT denies pain, stated that Tylenol helped. Pt compliant with nursing assessments and denied further needs at this time. denied SOB/ pt did cough when asked to breathe deeply. Pt uses call light and waits for assistance. 0600- pt compliant with morning med pass. complained of joy and given tylenol per MAY. pt stated she didn't think she would fall back asleep, but checked on pt and she was asleep. breathing regularly and with no apparent distress. bed alarm on, side rails upx2 or pt safety. belongings and call light within reach. will continue to monitor pt for safety.
[2017-08-28 07:00] VITALS: O2SAT 93
--- NOTE | 2017-08-28 08:46 | P.PN_ITS ---
Subjective Date Patient Seen: 08/28/17 Time Patient Seen: 08:40 Interval history: Patient has no new complaints this morning. Actually says she feels a little better. Able to breathe deeper. Does cough a bit when she breathes really deep. Still has some substernal discomfort when really breathing deep. Was up and around with Respiratory therapy and was able to complete the loop around the nurse's station the large loop around the nurse's station that would be. She did desaturate into the 85% range per Respiratory therapy and was slow to rebound but did rebound back up into the 90+ range back on oxygen. Increasing her fraction of inspired oxygen all the way up to 15 liters/minute did not seem to change the level of desaturation that she experienced while active. This is entirely consistent with interstitial lung disease which she clearly has Exam Vital Signs (past 8 hours): Vital Signs - 8 hr 3 08/28/17 01:21 08/28/17 04:00 Temperature 98.2 F Pulse Rate 64 Respiratory Rate 17 Blood Pressure 119/58 L Pulse Oximetry 93 94 Pulse Oximetry 94 Oxygen Delivery Method Room Air Oxygen Flow Rate 3 Objective Labs Result Diagrams: 08/24/17 16:15 08/24/17 16:15 Assessment & Plan Plan: Assessment/Plan Narrative: Patient with interstitial lung disease based on plain chest x-ray findings as well as CT scan of the chest. Etiology of this interstitial changes not clear but most likely would be methotrexate caused reaction or hypersensitivity. This is not unusual but known side effect of this medication. She could also have an atypical pneumonia causing this changed specially given her relative immunosuppression with the methotrexate and prednisone together for her rheumatological disorder I do believe that with time whether this interstitial disease has been caused by the methotrexate or an atypical pneumonia issue will improve with time. Institution of increased doses of corticosteroids may well help speed up the process but that is not guaranteed. She will require supplemental oxygen to help maintain a relatively normal oxygen saturation while we wait for this interstitial disease process to out and resolve. In some cases it does not resolve but and the vast majority cases it does eventually resolved, in my experience. At this point I do believe that she is safe to go home assuming that her oxygen saturation at rest is at 90+ percent and that even if she desaturates into the low 80% range with activity (or perhaps even slightly lower) as long as she rebounds back to the more normal range with rest she should be able to return home. Given the nature of her disease higher fractions of inspired oxygen do not make a big difference which has been demonstrated by Respiratory therapy yesterday and she should be sufficient to go home on 3 or perhaps 4 L of supplemental oxygen via nasal cannula continuously. She will continue on oral corticosteroids and complete a course of oral antibiotics in an effort to treat. As far as her rheumatological disorder goes that should be much better on the higher dose prednisone which she will continue on because of her lung disease. She has an appointment coming up in early September with Rheumatology and hopefully by then her oxygen levels and/or lung disease will be improved although I am certain it will be back to normal but Rheumatology should hopefully be able to find alternative treatment to the methotrexate to help with her rheumatological disorder. I do believe her room logical disorder is poorly characterized am not clear whether that is rheumatoid arthritis polymyalgia rheumatica element of fibromyalgia or something different. Pseudogout has been entertained by Rheumatology but I do not think that really explains her presentation here in the hospital as it was really of polyarthritic process which would be extraordinarily unusual in the setting of pseudogout. She may have pseudogout in addition to everything else but I do not think that is her underlying rheumatological disorder. Note: Greater than 30 minutes was spent evaluating the patient on the floor, including examining the patient, discussing clinical course with clinical and nursing staff, reviewing clinical course in the computer, preparing documentation and writing orders for continued management of care, discussing status with family as appropriate, reviewing plans for the next 24 hours with both patient/family and nursing staff as appropriate. Time Spent With Patient Time with patient: Greater than 35 minutes Quality VTE Deep Vein Thrombosis/Pulmonary Embolism Present on Admission: No
[2017-08-28 09:00] VITALS: BP 114/81; PULSE 79; RESP 16; TEMP 36.4; O2SAT 93
[2017-08-28] MEDS: SPIRONOLACTONE 50 MG TABLET PO (09:37)
[2017-08-28] MEDS: PROPRANOLOL ER 60 MG CAPSULE 120 MG PO (09:37)
[2017-08-28] MEDS: ENOXAPARIN 40 MG/0.4 ML SYRINGE SUBCUT (09:37)
[2017-08-28] MEDS: predniSONE 10 MG TABLET 30 MG PO (09:37)
[2017-08-28] MEDS: AZITHROMYCIN 250 MG TABLET PO (09:37)
[2017-08-28 11:29] VITALS: O2SAT 96
--- NOTE | 2017-08-28 14:59 | PC.NURSE ---
pt d/c with O2. understands that if she is SOB or can't catch her breath she is to call MD or 911. Pt left on 3L O2 and Sigrid will provide remainder of O2 supplies for pt today at her home. PIV removed prior to d/c. Pt took all belongings with her including medications from pharmacy.
== END 2017-08-28 14:50 | disposition home or self-care (01) ==
LOC: ED 20:55 → AC 08-25 09:48
PROVIDERS: Emergency Medicine; Admitting Provider Family Medicine; Emergency Provider Emergency Medicine; Family Provider Internal Medicine; PCP Internal Medicine; Visit Provider Internal Medicine
DX: J18.9 Pneumonia, unspecified organism (principal); R06.02 Shortness of breath; M35.3 Polymyalgia rheumatica; E78.5 Hyperlipidemia, unspecified; K21.9 Gastro-esophageal reflux disease without esophagitis; Z87.891 Personal history of nicotine dependence; R09.02 Hypoxemia
CPT/HCPCS: 36415; 71046; 71275; 80053; 82550; 82553; 83605; 83880; 84145; 84484; 85025; 85379; 85610; 85730; 87040; 93005; 93041; 94618; 94640; 94760; 94762; 96361; 96374; 96375; 99217; 99219; 99222; 99226; 99233; 99238; 99284; 99285; G0378; C9113; J1650; J1940; J2930

== ENCOUNTER 2017-08-31 15:51 | Emergency (ER) | payer MEDICARE, OTHER, SELFPAY ==
[2017-08-24 23:10] VITALS: BMI 30.6
[2017-08-31] VITALS (7 sets, daily range): BP systolic 87–105; BP diastolic 54–68; PULSE 69–89; RESP 18–27; TEMP 37.1; O2SAT 78–98
--- NOTE | 2017-08-31 15:47 | DI.RAD.S_ITS ---
PROCEDURE: XR CHEST 1V INDICATIONS: Shortness of breath TECHNIQUE: One view of the chest was acquired. COMPARISON: [facility], CR, XR CHEST 2V, 08/24/2017, 17:05. FINDINGS: Surgical changes and devices: None. Lungs and pleura: Prominent mixed interstitial and alveolar opacities are seen within the perihilar regions. Mediastinum: Mediastinal contours appear normal. Heart size is normal. Bones and chest wall: No suspicious bony lesions. Overlying soft tissues appear unremarkable. IMPRESSION: Prominent perihilar lung markings are most suspicious for pulmonary edema. Atypical pneumonia may also have this appearance. These findings have progressed since 08/24/17. Dictated by: Pankaj Petit M.D. on 08/31/2017 at 16:20 Approved by: Pankaj Petit M.D. on 08/31/2017 at 16:20
--- NOTE | 2017-08-31 15:48 | ED_ITS ---
HPI - SOB/Dyspnea General Chief Complaint: Shortness of Breath/Dyspnea Stated Complaint: SOB for 1 week Time Seen by Provider: 08/31/17 15:59 Source: patient Mode of arrival: EMS Limitations: no limitations History of Present Illness 77-year-old female who spent several days here in the hospital within the past week for respiratory distress and had a negative CTA of the chest for pulmonary embolism and was sent home with a diagnosis of ?interstitial lung disease on oxygen. She was just discharged from the hospital 3 days ago. She states that since then she has been using her oxygen. She states that the 1st night the tube came on plug from the oxygen source and she became short of breath however this improved on the oxygen was readministered. She states that yesterday and today she has become more short of breath requiring her to increase her oxygen at home. She states that yesterday when she increased the oxygen her symptoms improved however today when she did this her symptoms did not improve. She becomes very short of breath upon any exertion. She does have a home oxygen meter and stated that today her oxygen saturations were in the mid 70s on 5 L by nasal cannula. She called her primary doctor who told her to come to the emergency department. Related Data Home Medications Medication Instructions Recorded Confirmed [FEVERFEW] 380 mg PO DAILY #0 06/17/17 08/24/17 coenzyme Q10 [Co Q-10] 100 mg PO QDAY #0 06/17/17 08/24/17 polyethylene glycol 3350 [Miralax] 17 gm PO QDAYP #0 06/17/17 08/24/17 vitamin B complex [B 1 tab PO QDAY #0 06/17/17 08/24/17 Complex-Vitamin B12] ascorbic acid (vitamin C) 1,000 mg PO QDAY #0 06/25/17 08/24/17 doxylamine succinate 25 mg PO HS PRN #0 06/25/17 08/24/17 melatonin 3 mg PO HS #0 06/25/17 08/24/17 acetaminophen 500 mg tablet 1,000 mg PO TID PRN 07/30/17 08/24/17 diclofenac 1 % topical gel 2 gram TOP QID PRN 07/30/17 08/24/17 sumatriptan 100 mg tablet 100 mg PO ONCE PRN 07/30/17 08/24/17 acetaminophen-codeine 1 tab PO QPM 08/24/17 08/24/17 [Tylenol-Codeine #3] lorazepam 1 mg PO HSP PRN 08/24/17 08/24/17 omeprazole 40 mg PO DAILY 08/25/17 08/25/17 Previous Rx's Medication Instructions Recorded nortriptyline [Pamelor] 10 mg PO HS #90 cap 06/25/17 propranolol 120 mg PO QDAY #90 cap 06/25/17 simvastatin 40 mg PO HS #90 tab 06/25/17 spironolactone 50 mg PO QAM #90 tab 06/25/17 azithromycin [Zithromax Z-Kishore] 250 mg PO DAILY #7 tab 08/27/17 prednisone 30 mg PO AMCC #60 tab 08/27/17 Allergies Allergy/AdvReac Type Severity Reaction Status Date / Time methotrexate Allergy Severe Difficulty Verified 08/28/17 02:27 Breathing verapamil Allergy Mild UNKNOWN Verified 07/30/17 15:49 Review of Systems Constitutional Denies fatigue, Denies fever(s) and Denies headache(s) ENT Ears, Nose, Mouth, and Throat: Denies headache(s) Cardiovascular Denies chest pain, Denies diaphoresis, Denies rapid heart rate, Denies palpitations, Reports dyspnea and Reports dyspnea on exertion Respiratory Denies cough, Denies pain on inspiration, Reports dyspnea, Reports dyspnea on exertion and Denies wheezing Gastrointestinal Gastrointestinal: Denies constipation, Denies diarrhea, Denies nausea and Denies vomiting Genitourinary Denies dysuria Musculoskeletal Denies abnormal gait, Denies myalgias and Denies arthralgias Integumentary/Breasts Denies lesions, Denies rash and Denies wounds Neurologic Denies abnormal gait, Denies behavioral changes, Denies confusion, Denies headache(s) and Denies focal weakness Psychiatric Denies behavioral changes and Denies confusion Endocrine Denies fatigue and Denies palpitations Hematologic/Lymphatic Denies easy bleeding Allergic/Immunologic Denies wheezing [facility] Medical History Interstitial lung disease (Acute) Pseudogout (Chronic) PMR (polymyalgia rheumatica) (Suspected) Hypertension (Chronic 05/15/11) Hyperlipidemia (Chronic) Gastroesophageal reflux disease (Chronic 06/14/14) 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) Herpes simplex virus (HSV) infection (Chronic) History of migraine headaches (Chronic) Surgical History History of esophagogastroduodenoscopy (EGD) (06/18/12) Status post bunionectomy Status post colonoscopy (01/07/07) Status post dilation and curettage Family History Brother Age: 81 Hyperlipidemia Father Heart disease Social History household members: spouse Smoking Status: Former smoker alcohol intake: current Exam Initial Vital Signs Initial Vital Signs: Vital Signs Temperature 98.8 F 08/31/17 15:55 Pulse Rate 89 08/31/17 15:55 Respiratory Rate 20 08/31/17 15:55 Blood Pressure 104/58 L 08/31/17 15:55 Pulse Oximetry 78 L 08/31/17 15:55 Const General: cooperative, well developed, well groomed and in distress Nutritional Appearance: average body habitus Orientation: alert, awake and oriented x3 HENMT Head: normal to inspection, normocephalic and atraumatic Ears: hearing grossly normal bilaterally Face and sinus: normal facial exam Mouth: oral mucosae normal and moist mucous membranes Chest Chest: normal inspection of the chest and normal palpation of entire chest wall Resp Effort & Inspection: not able to speak in complete sentences (1-2 word sentences ), no cough, labored, no pursed lip breathing, respiratory distress, no retractions, tachypneic and no tripod positioning Auscultation: other (Decreased with coarse breath sounds bilateral) Cardio Rate: regular rate Rhythm: regular rhythm Pulses: radial pulses present GI Inspection: non-distended Palpation: soft, No firm, No guarding and No tender Back/Spine/Pelvis Back: normal to inspection, No back tenderness and No CVA tenderness Skin Lesions: no lesions Rashes: no rashes Wounds: no wounds Neuro General: alert, awake and oriented x3 Cognition: normal cognition Speech: speech normal Motor: muscle tone normal throughout Sensory Exam: no sensory deficits noted Extrem General: normal to inspection and capillary refill normal Psych Appearance: grossly normal and well kempt Speech and Movement: speech and movement normal Course Orders Ordered: ED Orders 08/31/17 15:47 XR chest 1V Stat EKG-12 Lead Stat 08/31/17 16:26 Arterial Blood Gas Stat 08/31/17 16:40 B Type Natriuretic Peptide Stat Complete Blood Count AUTO DIFF Stat Comprehensive Metabolic Panel Stat Lactate (Lactic Acid) Stat Lipase Stat Partial Thromboplastin Time Stat Procalcitonin Stat Prothrombin Time INR Stat Troponin I Stat Vital Signs - 8 hr 08/31/17 15:55 08/31/17 16:00 08/31/17 16:43 Temperature 98.8 F Pulse Rate 89 83 Respiratory Rate 20 22 Blood Pressure 104/58 L Blood Pressure [Left Arm] 87/68 L Pulse Oximetry 78 L 98 96 08/31/17 17:00 08/31/17 17:30 Temperature Pulse Rate 74 72 Respiratory Rate 20 27 H Blood Pressure Blood Pressure [Left Arm] 105/56 L 101/54 L Pulse Oximetry 92 93 MDM - SOB/Dyspnea Medical Records Attestation: I reviewed the patient's medical records. Lab Data Attestation: I reviewed the patient's lab results. Result diagrams: 08/31/17 16:40 08/31/17 16:40 Lab Results 08/31/17 08/31/17 08/31/17 Range/Units 16:26 16:40 16:40 WBC 12.9 H (4.5-11.0) X10^3/uL RBC 3.72 L (4.0-5.2) X10^6/uL Hgb 11.7 L (12.0-16.0) g/dL Hct 34.6 L (36-46) % MCV 93.1 (80-100) fL MCH 31.5 (26-34) PG MCHC 33.8 (30-36) % RDW 20.0 H (11.6-14.8) % Plt Count 460 H (150-400) X10^3/uL Neut % (Auto) Not Reportable Lymph % (Auto) Not Reportable Benton % (Auto) Not Reportable Eos % (Auto) Not Reportable Baso % (Auto) Not Reportable Seg Neutrophils % 82.0 H (38-70) % Band Neutrophils % 4.0 (3-7) % Lymphocytes % (Manual) 11.0 L (25-45) % Monocytes % (Manual) 11.0 (2-11) % Eosinophils % (Manual) 0.0 L (2-4) % Basophils % (Manual) 0.0 (0-1) % Metamyelocytes % 2.0 H (-0) % RBC Morphology Not Reportable Anisocytosis 3+ H PT 12.4 (10.1-12.7) SECONDS INR 1.1 (0.9-1.3) APTT 26 L D (26.4-36.2) SECONDS ABG pH 7.51 H (7.35-7.45) ABG pCO2 27.7 L (35-45) mmHg ABG pO2 124 H (80-105) mmHg ABG HCO3 22 L (23-27) mmol/L ABG Total CO2 23 (23-27) mmol/L ABG O2 Saturation 99 (95-100) % ABG Base Excess -1.0 (-2-3) mmol/L FiO2 100 Sodium (137-145) mmol/L Potassium (3.4-5.1) mmol/L Chloride (98-107) mmol/L Carbon Dioxide (22-32) mmol/L BUN (7-17) mg/dL Creatinine (0.52-1.04) mg/dL Estimated GFR (>60) mL/min BUN/Creatinine Ratio (6-22) Glucose (80-110) mg/dL Lactate (0.7-2.1) mmol/L Calcium (8.4-10.2) mg/dL Total Bilirubin (0.2-1.3) mg/dL AST (14-36) IU/L ALT (9-52) IU/L Alkaline Phosphatase (38-126) U/L Troponin I (0.01-0.034) ng/mL B-Natriuretic Peptide 175.0 H (<100) Total Protein (6.3-8.2) g/dL Albumin (3.5-5.0) g/dL Globulin (1.7-4.1) g/dL Albumin/Globulin Ratio (1.0-2.8) Lipase (23-300) U/L Procalcitonin (<0.5) ng/mL 08/31/17 08/31/17 08/31/17 Range/Units 16:40 16:40 16:40 WBC (4.5-11.0) X10^3/uL RBC (4.0-5.2) X10^6/uL Hgb (12.0-16.0) g/dL Hct (36-46) % MCV (80-100) fL MCH (26-34) PG MCHC (30-36) % RDW (11.6-14.8) % Plt Count (150-400) X10^3/uL Neut % (Auto) Lymph % (Auto) Benton % (Auto) Eos % (Auto) Baso % (Auto) Seg Neutrophils % (38-70) % Band Neutrophils % (3-7) % Lymphocytes % (Manual) (25-45) % Monocytes % (Manual) (2-11) % Eosinophils % (Manual) (2-4) % Basophils % (Manual) (0-1) % Metamyelocytes % (-0) % RBC Morphology Anisocytosis PT (10.1-12.7) SECONDS INR (0.9-1.3) APTT (26.4-36.2) SECONDS ABG pH (7.35-7.45) ABG pCO2 (35-45) mmHg ABG pO2 (80-105) mmHg ABG HCO3 (23-27) mmol/L ABG Total CO2 (23-27) mmol/L ABG O2 Saturation (95-100) % ABG Base Excess (-2-3) mmol/L FiO2 Sodium 133 L (137-145) mmol/L Potassium 5.0 (3.4-5.1) mmol/L Chloride 96 L (98-107) mmol/L Carbon Dioxide 26 (22-32) mmol/L BUN 29 H (7-17) mg/dL Creatinine 1.00 (0.52-1.04) mg/dL Estimated GFR 53.9 L (>60) mL/min BUN/Creatinine Ratio 29.0 H (6-22) Glucose 177 H (80-110) mg/dL Lactate 2.1 (0.7-2.1) mmol/L Calcium 8.8 (8.4-10.2) mg/dL Total Bilirubin 0.2 (0.2-1.3) mg/dL AST 59 H (14-36) IU/L ALT 63 H (9-52) IU/L Alkaline Phosphatase 62 (38-126) U/L Troponin I < 0.012 (0.01-0.034) ng/mL B-Natriuretic Peptide (<100) Total Protein 6.0 L (6.3-8.2) g/dL Albumin 3.1 L (3.5-5.0) g/dL Globulin 2.9 (1.7-4.1) g/dL Albumin/Globulin Ratio 1.1 (1.0-2.8) Lipase 42 (23-300) U/L Procalcitonin 0.26 (<0.5) ng/mL ABG Data Attestation: I personally reviewed and interpreted this ABG as follows: Interpretation: PH 7.5 PCO2 27.7 PO2 124 Bicarb 22 Oxygen sats 99% On non-rebreather Imaging Data Chest x-ray: Attestation: I personally reviewed and interpreted this imaging study as follows: My impression: Bilateral patchy infiltrates No focal consolidations No pneumothorax ECG Data Attestation: I personally reviewed and interpreted this ECG as follows: Prior ECG tracings: not available for review Interpretation: Sinus rhythm Ventricular rate 81 Normal axis normal intervals Normal QRS Normal QTC No ST T wave changes MDM Narrative Medical decision making narrative: Patient arrived hypoxic which improved with non-rebreather 15 L. She was eventually switched to high-flow nasal cannula. Patient has become short of breath and hypoxic with any sort of exertion. She dropped to the low 80s with using the bedside commode. Patient is afebrile. Is currently on prednisone. Chest x-ray does not show a focal consolidation however she does have an elevated white blood cell count. Consider pneumonia however after discussion with the transferring physician will hold on any antibiotics for now. Patient has a low BNP. Lung exam and physical exam not consistent with congestive heart failure. She is not hypertensive. EKG and troponin are normal and patient has chest pain today that she had during her last admission to the hospital. Secondary to this I have low suspicion for ACS currently. After review of the discharge summary it appears that the prior admitting doctor had a high concern for interstitial lung disease. It appears that there was high concern that this may be result of the methotrexate. It appears she was sent home on prednisone. Her primary doctor feels that the patient would be better off at a place that has pulmonology since her symptoms seem to be worsening. I discussed the case with Dr. Hills at [facility] in [facility] who accepts patient in transfer. I discussed the transfer with the patient who expressed understanding and agreement. Discharge Plan Departure Patient Disposition: Xfer Acute Care Hospital Clinical Impression: Acute respiratory distress, Hypoxia, Diffuse interstitial pulmonary disease Prescriptions: No Action polyethylene glycol 3350 [Miralax] 17 GM powder in packet 17 gm PO QDAYP Qty: 0 RF: 0 coenzyme Q10 [Co Q-10] 100 MG capsule 100 mg PO QDAY Qty: 0 RF: 0 vitamin B complex [B Complex-Vitamin B12] 1 EACH tablet 1 tab PO QDAY Qty: 0 RF: 0 [FEVERFEW] 380 mg PO DAILY Qty: 0 RF: 0 melatonin 3 MG tablet 3 mg PO HS Qty: 0 RF: 0 ascorbic acid (vitamin C) 500 MG tablet 1,000 mg PO QDAY Qty: 0 RF: 0 doxylamine succinate 25 MG tablet 25 mg PO HS PRN (Reason: Insomnia) Qty: 0 RF: 0 spironolactone 50 MG tablet 50 mg PO QAM Qty: 90 RF: 3 simvastatin 40 MG tablet 40 mg PO HS Qty: 90 RF: 3 nortriptyline [Pamelor] 10 MG capsule 10 mg PO HS Qty: 90 RF: 3 propranolol 120 MG capsule,extended release 24 hr 120 mg PO QDAY Qty: 90 RF: 3 acetaminophen [Tylenol Extra Strength] 500 mg tablet 1,000 mg PO TID PRN (Reason: Pain, Mild) RF: 0 sumatriptan succinate 100 mg tablet 100 mg PO ONCE PRN (Reason: Migraine Headache) RF: 0 diclofenac sodium 1 % gel 2 gram TOP QID PRN (Reason: Pain, Moderate) RF: 0 lorazepam 1 MG tablet 1 mg PO HSP PRN (Reason: Insomnia) RF: 0 acetaminophen-codeine [Tylenol-Codeine #3] 300-30 mg Tablet 1 tab PO QPM RF: 0 omeprazole 40 mg Capsule,Delayed Release(Dr/Ec) 40 mg PO DAILY RF: 0 azithromycin [Zithromax Z-Kishore] 250 mg Tablet 250 mg PO DAILY Qty: 7 RF: 0 prednisone 20 MG tablet 30 mg PO AMCC Qty: 60 RF: 3
[2017-08-31 16:48] LABS: Fractionated Inspired Oxygen 100; HCO3 ABG 22 mmol/L (23-27); Oxygen Saturation ABG 99 % (95-100); PCO2 ABG 27.7 mmHg (35-45); PO2 ABG 124 mmHg (80-105); TCO2 ABG 23 mmol/L (23-27); pH ABG 7.51 (7.35-7.45)
[2017-08-31 16:58] LABS: INR 1.1 (0.9-1.3); Prothrombin Time 12.4 SECONDS (10.1-12.7)
--- NOTE | 2017-08-31 17:00 | PC.NURSE ---
Became very short of breath and sats dropped to the 80's even with oxygen
[2017-08-31 17:01] LABS: Alanine Aminotransferase 63 IU/L (9-52); Albumin 3.1 g/dL (3.5-5.0); Albumin Globulin Ratio 1.1 (1.0-2.8); Alkaline Phosphatase 62 U/L (38-126); Aspartate Aminotransferase 59 IU/L (14-36); Bilirubin Total 0.2 mg/dL (0.2-1.3); Blood Urea Nitrogen 29 mg/dL (7-17); Calcium 8.8 mg/dL (8.4-10.2); Carbon Dioxide 26 mmol/L (22-32); Chloride 96 mmol/L (98-107); Estimated Glomerular Filt Rate 53.9 mL/min (>60); Globulin 2.9 g/dL (1.7-4.1); Glucose 177 mg/dL (80-110); HEMOLYSIS < 15 (0-50); Lipase 42 U/L (23-300); PTT Partial Thromboplastin Tim 26 SECONDS (26.4-36.2); Sodium 133 mmol/L (137-145)
[2017-08-31 17:02] LABS: Lactate (Lactic Acid) 2.1 mmol/L (0.7-2.1)
--- NOTE | 2017-08-31 17:02 | PC.NURSE ---
Lung sounds deferred to RT
[2017-08-31 17:15] LABS: Troponin I < 0.012 ng/mL (0.01-0.034)
--- NOTE | 2017-08-31 17:18 | PC.NURSE ---
Pt noted to have sat 83% w/ good wave form. MD in to re-eval. Pt repositioned in bed to high fowlers position. Encouraged to take slow deep breath. continues to be on 15 liters high flow oxygen by nasal cannula. RT here to evaluate.
[2017-08-31 17:40] LABS: Hematocrit 34.6 % (36-46); Hemoglobin 11.7 g/dL (12.0-16.0); Mean Corpuscular HGB Conc 33.8 % (30-36); Mean Corpuscular Hemoglobin 31.5 PG (26-34); Mean Corpuscular Volume 93.1 fL (80-100); Platelet Count 460 X10^3/uL (150-400); Red Blood Cell Count 3.72 X10^6/uL (4.0-5.2); White Blood Cell Count 12.9 X10^3/uL (4.5-11.0)
[2017-08-31 17:41] LABS: Add Manual Diff / Slide Review YES
[2017-08-31 17:51] LABS: Procalcitonin 0.26 ng/mL (<0.5)
[2017-08-31 18:05] LABS: Anisocytosis 3+
--- NOTE | 2017-08-31 19:38 | PC.NURSE ---
Les, informed of patient being transferred and given phone number and room number patient will be at.
== END 2017-08-31 19:00 | disposition short-term general hospital (02) ==
PROVIDERS: Emergency Provider Emergency Medicine; Family Provider Internal Medicine; PCP Internal Medicine
DX: J84.10 Pulmonary fibrosis, unspecified (principal); R06.03 Acute respiratory distress; R09.02 Hypoxemia
CPT/HCPCS: 36415; 36600; 71045; 80053; 82805; 83605; 83690; 83880; 84145; 84484; 85025; 85610; 85730; 93005; 93010; 99284; 99285